=== PATIENT | male | born 1940 | race Caucasian/White ===

== ENCOUNTER 2022-01-14 08:33 | Outpatient (REF) | payer MEDICARE, SELFPAY ==
[2022-01-14 11:26] LABS: MANUAL DIFF FLAG NO
[2022-01-14 11:35] LABS: Basophils Absolute Auto 0.1 X10*3/uL (0.0-0.2); Basophils Percent Auto 0.8 % (0-2); Eosinophils Absolute Auto 0.1 X10*3/uL (0.0-0.4); Eosinophils Percent Auto 2.2 % (0-4); Hematocrit 41.8 % (42.0-52.0); Hemoglobin 13.9 g/dl (14.0-18.0); Imm Gran Abs Auto 0.01 X10*3/uL (0.00-0.03); Imm Gran Pct Auto 0.2 % (0.0-0.4); Lymphocytes Absolute Auto 1.4 X10*3/uL (1.2-4.9); Lymphocytes Percent Auto 21.5 % (20-40); Mean Corpuscular HGB Conc 33.3 g/dl (31.0-36.0); Mean Corpuscular Hemoglobin 31.7 pg (27.0-33.0); Mean Corpuscular Volume 95.2 fL (80.0-98.0); Mean Platelet Volume 11.1 fL (9.4-12.4); Monocytes Absolute Auto 0.5 X10*3/uL (0.1-1.2); Monocytes Percent Auto 7.9 % (2-11); Neutrophils Absolute Auto 4.3 x10*3/uL (2.0-8.3); Neutrophils Percent Auto 67.4 % (45-73); Platelet Count 188 X10*3/uL (160-400); Red Blood Count 4.39 X10*6/uL (4.60-5.80); Red Cell Distribution Width 13.4 % (11.0-16.0); White Blood Count 6.4 X10*3/uL (4.8-10.8)
[2022-01-14 12:11] LABS: Alanine Aminotransferase 13 U/L (0-40); Albumin Level 4.2 g/dL (3.5-5.0); Alkaline Phosphatase 81 U/L (39-117); Anion Gap 10 (12-20); Aspartate Amino Transferase 15 U/L (5-37); Bilirubin Total 0.8 mg/dL (0.0-1.0); Blood Urea Nitrogen 10 mg/dL (9-16); Calcium 9.3 mg/dL (8.4-10.2); Carbon Dioxide 27 mmol/L (22-29); Chloride 108 mmol/L (96-108); Cholesterol 172 mg/dL; Estimated Glomerular Filt Rate > 60; Glucose Fasting 99 mg/dL (60-99); HDL Cholesterol 44 mg/dL; LDL Cholesterol Calculated 111 mg/dl; Potassium 3.9 mmol/L (3.3-5.1); Sodium 141 mmol/L (135-145); Triglycerides 86 mg/dL
[2022-01-14 12:13] LABS: Prostate Specific Antigen Scr 0.73 ng/mL (<0.05-4.0)
== END 2022-01-14 08:34 | disposition home or self-care (01) ==
LOC: HO.HMGCLDS 08:33
PROVIDERS: Visit Provider Internal Medicine
DX: Z12.5 Encounter for screening for malignant neoplasm of prostate (principal); N40.0 Benign prostatic hyperplasia without lower urinary tract symptoms; J44.9 Chronic obstructive pulmonary disease, unspecified; G47.33 Obstructive sleep apnea (adult) (pediatric); R56.9 Unspecified convulsions; I87.8 Other specified disorders of veins
CPT/HCPCS: 36415; 80053; 80061; 84153; 85025

== ENCOUNTER 2023-02-07 11:18 | Outpatient (REF) | payer MEDICARE, SELFPAY ==
--- NOTE | ~2023-02-07 | XR_ITS ---
EXAMINATION: XR CALCANEUS, RIGHT CLINICAL INFORMATION: Pain COMPARISON: None available. TECHNIQUE: Lateral and axial views of the right calcaneus were obtained. FINDINGS: No acute fracture or dislocation. Mild degenerative changes of the foot with degenerative spurring of the dorsal midfoot and plantar calcaneal enthesopathy. No tibiotalar joint effusion. Soft tissue swelling in the plantar soft tissues of the heel. XR/XR calcaneus RT min 2V IMPRESSION: 1. Soft tissue swelling in the plantar soft tissues of the heel. 2. Mild degenerative changes of the foot with degenerative spurring of the dorsal midfoot and plantar calcaneal enthesopathy.
[2023-02-07 15:01] LABS: MANUAL DIFF FLAG NO
[2023-02-07 15:17] LABS: Basophils Percent Auto 0.6 % (0-2); Eosinophils Absolute Auto 0.1 X10*3/uL (0.0-0.4); Eosinophils Percent Auto 1.2 % (0-4); Hematocrit 41.8 % (42.0-52.0); Hemoglobin 13.7 g/dl (14.0-18.0); Imm Gran Abs Auto 0.03 X10*3/uL (0.00-0.03); Imm Gran Pct Auto 0.4 % (0.0-0.4); Lymphocytes Absolute Auto 1.4 X10*3/uL (1.2-4.9); Lymphocytes Percent Auto 20.2 % (20-40); Mean Corpuscular HGB Conc 32.8 g/dl (31.0-36.0); Mean Corpuscular Hemoglobin 31.7 pg (27.0-33.0); Mean Corpuscular Volume 96.8 fL (80.0-98.0); Monocytes Absolute Auto 0.6 X10*3/uL (0.1-1.2); Monocytes Percent Auto 8.1 % (2-11); Neutrophils Absolute Auto 4.7 x10*3/uL (2.0-8.3); Neutrophils Percent Auto 69.5 % (45-73); Platelet Count 182 X10*3/uL (160-400); Red Blood Count 4.32 X10*6/uL (4.60-5.80); Red Cell Distribution Width 13.4 % (11.0-16.0); White Blood Count 6.8 X10*3/uL (4.8-10.8)
[2023-02-07 15:51] LABS: Alanine Aminotransferase 12 U/L (0-40); Albumin Level 4.3 g/dL (3.5-5.0); Alkaline Phosphatase 76 U/L (39-117); Anion Gap 11 (12-20); Aspartate Amino Transferase 17 U/L (5-37); Bilirubin Total 0.8 mg/dL (0.0-1.0); Blood Urea Nitrogen 12 mg/dL (9-16); Calcium 9.6 mg/dL (8.4-10.2); Carbon Dioxide 27 mmol/L (22-29); Chloride 108 mmol/L (96-108); Cholesterol 158 mg/dL; Estimated Glomerular Filt Rate > 60; Glucose Random 77 mg/dL (60-115); Potassium 3.9 mmol/L (3.3-5.1); Sodium 142 mmol/L (135-145); Total Protein 7.3 g/dL (6.5-8.0)
== END 2023-02-07 11:19 | disposition home or self-care (01) ==
LOC: HO.HMGCX 11:18
PROVIDERS: PCP Internal Medicine; Visit Provider Internal Medicine
DX: M79.671 Pain in right foot (principal); N40.0 Benign prostatic hyperplasia without lower urinary tract symptoms; J44.9 Chronic obstructive pulmonary disease, unspecified; E78.00 Pure hypercholesterolemia, unspecified
CPT/HCPCS: 36415; 73650; 80053; 82465; 85025

== ENCOUNTER 2023-06-13 09:42 | Outpatient (REF) | payer MEDICARE, SELFPAY ==
[2023-06-13 10:51] LABS: MANUAL DIFF FLAG NO
[2023-06-13 10:52] LABS: Basophils Absolute Auto 0.1 X10*3/uL (0.0-0.2); Basophils Percent Auto 1.1 % (0-2); Eosinophils Absolute Auto 0.1 X10*3/uL (0.0-0.4); Eosinophils Percent Auto 1.3 % (0-4); Hematocrit 43.3 % (42.0-52.0); Hemoglobin 14.3 g/dl (14.0-18.0); Imm Gran Abs Auto 0.02 X10*3/uL (0.00-0.03); Imm Gran Pct Auto 0.4 % (0.0-0.4); Lymphocytes Absolute Auto 1.4 X10*3/uL (1.2-4.9); Lymphocytes Percent Auto 25.3 % (20-40); Mean Corpuscular Hemoglobin 31.6 pg (27.0-33.0); Mean Corpuscular Volume 95.8 fL (80.0-98.0); Mean Platelet Volume 10.8 fL (9.4-12.4); Monocytes Absolute Auto 0.5 X10*3/uL (0.1-1.2); Monocytes Percent Auto 8.9 % (2-11); Neutrophils Absolute Auto 3.4 x10*3/uL (2.0-8.3); Platelet Count 174 X10*3/uL (160-400); Red Blood Count 4.52 X10*6/uL (4.60-5.80); Red Cell Distribution Width 13.6 % (11.0-16.0); White Blood Count 5.4 X10*3/uL (4.8-10.8)
[2023-06-13 11:27] LABS: Anion Gap 11 (12-20); Blood Urea Nitrogen 14 mg/dL (9-16); Calcium 9.7 mg/dL (8.4-10.2); Carbon Dioxide 29 mmol/L (22-29); Chloride 109 mmol/L (96-108); Estimated Glomerular Filt Rate > 60; Glucose Random 100 mg/dL (60-115); Iron 133 mcg/dL (45-160); Percent Iron Saturation 57 % (15-50); Potassium 4.3 mmol/L (3.3-5.1); Sodium 145 mmol/L (135-145); Total Iron Binding Capacity 232 mcg/dL (228-428); Unsaturated Iron Binding 99 ug/dL
== END 2023-06-13 09:43 | disposition home or self-care (01) ==
LOC: HO.10HDL 09:42
PROVIDERS: Visit Provider Internal Medicine
DX: D64.9 Anemia, unspecified (principal); J44.9 Chronic obstructive pulmonary disease, unspecified
CPT/HCPCS: 36415; 80048; 83540; 85025

== ENCOUNTER 2023-08-27 17:05 | Emergency (ER) | payer MEDICARE, SELFPAY ==
[2023-08-27 17:19] VITALS: BP 167/92; PULSE 82; RESP 16; TEMP 37.1; O2SAT 96; BMI 28.4
--- NOTE | 2023-08-27 17:37 | ED.FALL ---
HPI - Fall General Chief Complaint: Fall Stated Complaint: FALL W/HEAD LAC,SUPERFICIAL CUT Time Seen by Provider: 08/27/23 17:20 Source: patient Mode of arrival: EMS History of Present Illness HPI Narrative: 82-year-old male who arrives via EMS after he was heading out to snow blow his yd reached for an item and then fell backwards striking the back of his head against a cast iron heater but denies any loss of consciousness, bleeding is controlled denies any visual disturbance/dizziness/headache and does not use any blood thinners. Related Data Home Medications Medication Instructions Recorded Confirmed lamotrigine 100 mg tablet 150 mg PO BID 01/05/22 tamsulosin 0.4 mg capsule 0.4 mg PO DAILY 01/05/22 tiotropium 2.5 mcg-olodaterol 2.5 2 puff PO DAILY 01/05/22 mcg/actuation mist for inhalation (Stiolto Respimat) Allergies Allergy/AdvReac Type Severity Reaction Status Date / Time No Known Allergies Allergy Unverified 01/14/22 08:10 Review of Systems Review of Systems: Pertinent positives and negatives as stated in [facility] Past Medical History Source: nursing notes reviewed Onset Date is defined in the Problem List Problems that require an onset date and time if occurred within 24 hrs of arrival to the ED Aortic Dissection and Rupture; Neurologic impairment; Cardiopulmonary Arrest; Endotracheal Intubation; Insertion or Replacement of Mechanical Circulatory Assist Device Social History Social History Advance Directives: Yes Advance Directives on File: No Physical Exam Vital Signs: Vital Signs: Last Vital Signs Temp 98.7 F 08/27/23 17:19 Pulse 82 08/27/23 17:19 Resp 16 08/27/23 17:19 BP 167/92 H 08/27/23 17:19 Pulse Ox 96 08/27/23 17:19 O2 Del Method Room Air 08/27/23 17:19 BMI result Body Mass Index 28.4 VITAL SIGNS: Reviewed. GENERAL: Well developed, well nourished, in no acute distress. HEAD: Normocephalic/contusion with abrasion at mid occiput EYES: PERRLA, EOMI intact without pain, no nystagmus EARS: Ext canals without abnormality NOSE: Nares patent bilateral OROPHARYNX: no oral lesions noted, posterior pharynx clear NECK: Supple, no adenopathy LUNGS: Normal breath sounds. No adventitious sounds or accessory muscle use. SpO2<96> CARDIOVASCULAR: Regular rate and rhythm without noted murmurs, no JVD or lower extremity edema. ABDOMEN: Soft, non-tender, non-distended with bowel sounds. MUSCULOSKELETAL: No tenderness, deformities, or effusions noted on gross inspection. EXTREMITIES: No cyanosis, clubbing or edema. SKIN: Inspection of the skin reveals no rashes NEUROLOGIC: Alert and oriented x 4. Strength and sensation to light touch were grossly intact x 4. Medical Decision Making Medical Decision Making MDM Narrative: 82-year-old male with history and clinical presentation of mechanical fall with contusion/abrasion of the scalp, no neurologic findings and not on blood thinners. Will evaluate with CT head and C-spine given patient's age and item that he fell backwards onto despite no loss of consciousness. I reviewed the CT scan which is negative for intracranial hemorrhage or mass effect. Cervical spine CT scan describes a slight C5 anterior wedging, on clinical exam there was no correlation with pain or discomfort. There is no numbness/tingling/weakness into either upper extremity. Differential Diagnosis Differential Diagnoses: The differential diagnosis associated with the presentation includes Please see the discussion above Admission/Observation Consideration of admission/observation: Escalation of care including admission/observation considered Please see the discussion above Radiology Impression Discussion of test interpretation with radiology: I have reviewed the radiologist's reading. Radiologist Impression: Please see the discussion above External Record Review External record reviewed: Outpatient record, Prior outpatient labs and Prior outpatient radiology Chronic Conditions Patient?s care impacted by: Other COPD Discharge Plan Discharge Clinical Impression: Fall, Contusion of scalp Patient Disposition: Home, Self-Care Instructions: Scalp Contusion in Adults (ED), Fall Prevention (ED) Additional Instructions: 1. Resume all home medications as prescribed. 2. Recommend Tylenol/ibuprofen as needed for headaches. Return to the ER for any worsening symptoms. Prescriptions: No Action tamsulosin 0.4 mg capsule 0.4 mg PO DAILY lamotrigine 100 mg tablet 150 mg PO BID Stiolto Respimat 2.5-2.5 mcg/actuation mist 2 puff PO DAILY Referrals: Kwabena Acuña MD [Primary Care Provider] -
== END 2023-08-27 19:45 | disposition home or self-care (01) ==
PROVIDERS: Emergency Provider Student in an Organized Health Care Education/Training Program; PCP Internal Medicine
DX: S00.03XA Contusion of scalp, initial encounter (principal); S09.90XA Unspecified injury of head, initial encounter; W00.0XXA Fall on same level due to ice and snow, initial encounter; Y93.9 Activity, unspecified; Y92.9 Unspecified place or not applicable; Y99.9 Unspecified external cause status
CPT/HCPCS: 70450; 72125; 99282; 99284

== ENCOUNTER 2024-01-01 07:53 | Outpatient (REF) | payer MEDICARE, SELFPAY ==
--- NOTE | ~2024-01-01 | XR_ITS ---
EXAMINATION: XR BILATERAL KNEES CLINICAL INFORMATION: Pain in bilateral knees. COMPARISON: None available. TECHNIQUE: 3 views of each knee. FINDINGS: LEFT KNEE: Small joint effusion. Bones are diffusely demineralized. Chondrocalcinosis in the medial lateral compartments. Mild to moderate narrowing of the medial compartment. Tiny tricompartmental osteophytes. RIGHT KNEE: The bones are diffusely demineralized. Faint chondrocalcinosis in the medial and lateral compartments. Small tricompartmental osteophytes. Vascular calcifications. Moderate narrowing of the medial compartment. Small joint effusion. XR/XR knee LT 3V IMPRESSION: 1. Chondrocalcinosis in the medial and lateral compartments bilaterally. 2. Moderate degenerative changes bilateral knees, right greater than left.
--- NOTE | ~2024-01-01 | XR_ITS ---
EXAMINATION: XR BILATERAL KNEES CLINICAL INFORMATION: Pain in bilateral knees. COMPARISON: None available. TECHNIQUE: 3 views of each knee. FINDINGS: LEFT KNEE: Small joint effusion. Bones are diffusely demineralized. Chondrocalcinosis in the medial lateral compartments. Mild to moderate narrowing of the medial compartment. Tiny tricompartmental osteophytes. RIGHT KNEE: The bones are diffusely demineralized. Faint chondrocalcinosis in the medial and lateral compartments. Small tricompartmental osteophytes. Vascular calcifications. Moderate narrowing of the medial compartment. Small joint effusion. XR/XR knee RT 3V IMPRESSION: 1. Chondrocalcinosis in the medial and lateral compartments bilaterally. 2. Moderate degenerative changes bilateral knees, right greater than left.
== END 2024-01-01 07:54 | disposition home or self-care (01) ==
LOC: HO.HOSX 07:53
PROVIDERS: Visit Provider Orthopaedic Surgery
DX: M17.0 Bilateral primary osteoarthritis of knee (principal)
CPT/HCPCS: 73562; 99202

== ENCOUNTER 2024-01-01 10:50 | Outpatient (AMB) | payer MEDICARE, SELFPAY ==
[2024-01-01 10:54] VITALS: BMI 28.4
--- NOTE | 2024-01-01 10:54 | MHC.OFFVIS ---
Vital Signs 01/01/24 10:54 Height 6 ft 1 in Weight 215 lb BMI 28.4 Intake Visit Reasons: [employer]-Both knee pain Intake Note: Cirilo is a 83 year old male who presents as a new patient with bilateral knee pain. Patient reports his pain has been going on for about a year and is a 5 on the 1-10 pain scale. His Left is worse. He states he is using tylenol and lidocaine creams for pain with some relief. He denies injury, injections, and surgery. He denies any locking or giving way. Allergies niacin Allergy (Intermediate, Verified 01/01/24 11:13) Rash Medication List - Last Reconciled 01/01/24 by Mehul Easton MD lamotrigine 150 mg PO BID tamsulosin 0.4 mg PO DAILY tiotropium-olodaterol 2.5-2.5 mcg/actuation (Stiolto Respimat) 2 puffs PO DAILY PFSH Social History (Updated 01/01/24 @ 11:14 by sUha Sims CMA) Patient Tobacco Use Status: Former Tobacco user Current occupational status: retired Current occupation: Right hand dominant Physical Exam Vital Signs: BMI result Body Mass Index 28.4 Const Other: Well-nourished well-developed very friendly male awake alert and oriented x3 in no acute distress Extrem Other: Bilateral lower extremity examination shows good capillary refill, no skin lesions noted, normal sensation light touch Bilateral knee examination shows minimal effusions, mild crepitus with range of motion, mild discomfort with range of motion, no instability Results Reviewed Results Reviewed: X-rays of the patient's bilateral knees taken today show mild to moderate diffuse joint space narrowing, no acute bony abnormalities Assessment & Plan Assessment & Plan (1) Right knee pain: Code(s): M25.561 - Pain in right knee Category: Medical (2) Left knee pain: Code(s): M25.562 - Pain in left knee Category: Medical Plan Mr. Grider presents with intermittent bilateral knee discomfort due to degenerative joint disease. I had a lengthy discussion with the patient regarding the treatment options. At this point the patient's symptoms are tolerable to him. He wishes to hold off on an injection. Will continue with his activity modifications. He will follow up with me on an as-needed basis should his symptoms worsen in any way. Feel free to call me at any time should questions regarding his orthopedic management arise. Thank you very much for asking me to see this very friendly gentleman. I spent 20 minutes in reviewing the patient's records and imaging studies, seeing the patient and documenting in the medical record. Orders: Orders XR knee RT 3V Today M25.561 - Pain in right knee XR knee LT 3V Today M25.562 - Pain in left knee Coding Level of Care Code New Pt Level 2 (55269) Diagnoses Right knee pain M25.561 Left knee pain M25.562
== END 2024-01-01 11:33 | disposition home or self-care (01) ==
PROVIDERS: PCP Internal Medicine; Visit Provider Orthopaedic Surgery
DX: M25.561 Pain in right knee (principal); M25.562 Pain in left knee
CPT/HCPCS: 99203

== ENCOUNTER 2024-01-25 10:12 | Outpatient (AMB) | payer MEDICARE, SELFPAY ==
--- NOTE | 2024-01-25 10:14 | A.OFFVIS_ITS ---
Intake Visit Reasons: Newprob-Lower back pain Intake Note: This is an 83 year old male who presents for a new problem appointment for lower back pain. He had x rays updated in the office today. He reports he had a fall 2 months ago but does not think that contributes to his pain. He denies numbness and tingling however he is pointing to his hip area and stating he has pain there. He uses a cane to ambulate. He takes Tylenol daily to help with the pain. Allergies niacin Allergy (Intermediate, Verified 01/25/24 10:15) Rash Medication List - Last Reconciled 01/25/24 by Elsa Baxter RN lamotrigine 150 mg PO BID tamsulosin 0.4 mg PO DAILY tiotropium-olodaterol 2.5-2.5 mcg/actuation (Stiolto Respimat) 2 puffs PO DAILY HPI Comments Details: He says it is more left hip pain. Chronic for years. Sees a chiropractor for past several years. 2 months ago, he noticed worsening of left hip pain. Chiro tried to manipulate, xray of left hip done and told to see orthopedics. Left hip lateral, goes to groin, goes to buttocks. Denies back pain. Does not radiate to leg. Denies numbness. Difficulty going up stairs and walk. Uses cane. Does play golf, he rolled downwards last September. No new change in bladder/bowel. Here with . [facility] Medical History (Updated 01/25/24 @ 13:31 by Becky Perez MD) Left hip pain Social History (Updated 01/01/24 @ 11:14 by Usha Sims CMA) Patient Tobacco Use Status: Former Tobacco user Current occupational status: retired Current occupation: Right hand dominant Review of Systems Const All systems reviewed & are unremarkable except as noted in HPI and below Physical Exam Constitutional: Patient appears to be in no acute distress, well nourished and well developed. Patient was appropriately conversant and oriented. Good historian. MSK: No specific abnormalities found on inspection of the spine and all extremities. No pain with palpation over the lumbar area. Mild tenderness on left SI joint. Most of his tenderness appears to be left gluteus. Mild tenderness on left GT. Lumbar ROM was full. He walks with both knees flexed. He has difficulty and weakness on left hip flexion. No footdrop. Neurological: Weakness as above. Suárez?s negative bilaterally. Babinski was down going bilaterally. Clonus was negative. Gait as above. Uses cane. Results Reviewed Results Reviewed: I independently reviewed the results of the following: Lumbar x-ray done in the office prior to visit showed spondylosis, endplate spurs anteriorly, decreased disc space L3-4 L4-5 and L5-S1. I reviewed records from the following: Dr. Easton saw him for knee DJD He had a fall and went to the ER 08/27/2023 Assessment & Plan Assessment & Plan (1) Left hip pain: Code(s): M25.552 - Pain in left hip Category: Medical (2) Degenerative joint disease of left hip: Code(s): M16.12 - Unilateral primary osteoarthritis, left hip Category: Medical Qualifiers: Osteoarthritis type: primary Qualified Code(s): M16.12 - Unilateral primary osteoarthritis, left hip (3) Sacroiliac joint dysfunction of left side: Code(s): M53.3 - Sacrococcygeal disorders, not elsewhere classified Category: Medical (4) Muscle strain of left gluteal region: Code(s): S76.012A - Strain of muscle, fascia and tendon of left hip, initial encounter Category: Medical Qualifiers: Encounter type: initial encounter Qualified Code(s): S76.012A - Strain of muscle, fascia and tendon of left hip, initial encounter Plan Suspect that this symptoms are primarily from left hip osteoarthritis. We will send him back to x-rays for confirmation. Secondarily, he is also hurting on his left SI joint and gluteus muscles. He is willing and eager to try physical therapy. We could try topical pain medication for now such as diclofenac gel. Instructions given. As of the time of this writing, I have you would hip x-ray films, and no acute fracture was seen. Saw decreased joint space. Await final reading. Assessment and plan discussed with patient, and patient was agreeable. All questions were answered thoroughly. Follow-up 4-6 weeks after PT. Becky Perez MD, JENNIFER Board Certified, [place] Board of Physical Medicine and Rehabilitation (ABPMR) Board Certified, [place] Board of Electrodiagnostic Medicine (ABEM) Orders: Orders XR lumbar spine 2-3V Today M54.9 - Dorsalgia, unspecified XR hip LT min 2V Today M16.12 - Unilateral primary osteoarthritis, left hip, M25.552 - Pain in left hip, M53.3 - Sacrococcygeal disorders, not elsewhere classified, S76.012A - Strain of muscle, fascia and tendon of left hip, initial encounter PT Evaluation and Treatment Today M16.12 - Unilateral primary osteoarthritis, left hip, M25.552 - Pain in left hip, M53.3 - Sacrococcygeal disorders, not elsewhere classified, S76.012A - Strain of muscle, fascia and tendon of left hip, initial encounter Medications: New diclofenac sodium 1% apply to left foot 4 grams topical QID 100 grams 0RF Coding Level of Care Code New Pt Level 4 (72686) Diagnoses Left hip pain M25.552 Primary osteoarthritis of left hip M16.12 Osteoarthritis type: primary Sacroiliac joint dysfunction of left side M53.3 Muscle strain of left gluteal region, initial encounter S76.012A Encounter type: initial encounter
== END 2024-01-25 11:37 | disposition home or self-care (01) ==
PROVIDERS: PCP Internal Medicine; Visit Provider Physical Medicine & Rehabilitation
DX: M25.552 Pain in left hip (principal); M16.12 Unilateral primary osteoarthritis, left hip; M53.3 Sacrococcygeal disorders, not elsewhere classified; S76.012A Strain of muscle, fascia and tendon of left hip, initial encounter
CPT/HCPCS: 99203

== ENCOUNTER 2024-01-25 10:48 | Outpatient (REF) | payer MEDICARE, SELFPAY ==
--- NOTE | ~2024-01-25 | XR_ITS ---
EXAMINATION: XR LUMBAR SPINE XR HIP, LEFT CLINICAL INDICATION: Back pain, patient unable to stand per technologist. COMPARISON: Sacroiliac joints 11/13/2023. TECHNIQUE: 3 views of the lumbar spine. 2 views of the left hip. FINDINGS: LUMBAR SPINE: The bones are diffusely demineralized. Degenerative changes of the bilateral sacroiliac joints. 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 Multilevel lumbar spondylosis with multilevel loss of disc space height most notable at L5-S1. Grade 1 anterolisthesis of L5 on S1. Minimal grade 1 retrolisthesis of L1 on L2, L2 on L3, and L3 on L4. LEFT HIP: The bones are diffusely demineralized. Surgical sutures overlie the sacrum. Moderate degenerative changes with joint space narrowing and hypertrophic change involving left hip. Amorphous calcifications in the soft tissues adjacent to the left hip and left greater trochanter. XR/XR hip LT min 2V IMPRESSION: 1. Multilevel lumbar spondylosis most notable at L5-S1. 2. 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 3. Moderate degenerative changes in the left hip.
--- NOTE | ~2024-01-25 | XR_ITS ---
EXAMINATION: XR LUMBAR SPINE XR HIP, LEFT CLINICAL INDICATION: Back pain, patient unable to stand per technologist. COMPARISON: Sacroiliac joints 11/13/2023. TECHNIQUE: 3 views of the lumbar spine. 2 views of the left hip. FINDINGS: LUMBAR SPINE: The bones are diffusely demineralized. Degenerative changes of the bilateral sacroiliac joints. 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 Multilevel lumbar spondylosis with multilevel loss of disc space height most notable at L5-S1. Grade 1 anterolisthesis of L5 on S1. Minimal grade 1 retrolisthesis of L1 on L2, L2 on L3, and L3 on L4. LEFT HIP: The bones are diffusely demineralized. Surgical sutures overlie the sacrum. Moderate degenerative changes with joint space narrowing and hypertrophic change involving left hip. Amorphous calcifications in the soft tissues adjacent to the left hip and left greater trochanter. XR/XR lumbar spine 2-3V IMPRESSION: 1. Multilevel lumbar spondylosis most notable at L5-S1. 2. 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 3. Moderate degenerative changes in the left hip.
== END 2024-01-25 10:49 | disposition home or self-care (01) ==
LOC: HO.HOSX 10:48
PROVIDERS: Visit Provider Physical Medicine & Rehabilitation
DX: M16.12 Unilateral primary osteoarthritis, left hip (principal); M54.9 Dorsalgia, unspecified; M53.3 Sacrococcygeal disorders, not elsewhere classified; S76.012A Strain of muscle, fascia and tendon of left hip, initial encounter
CPT/HCPCS: 72100; 73502; 99202

== ENCOUNTER 2024-02-28 08:58 | Outpatient (AMB) | payer MEDICARE, SELFPAY ==
[2024-02-28 08:59] VITALS: BMI 28.4
--- NOTE | 2024-02-28 08:59 | A.OFFVIS_ITS ---
Vital Signs 02/28/24 08:59 Height 6 ft 1 in Weight 215 lb BMI 28.4 Intake Visit Reasons: OV-Lower back pain-follow up Intake Note: Cirilo is a 83 year old male who presents to the office today for a follow up Strain of L Hip, Primary OA L Hip. Pt has been going to PT which is going well, he explains that it took them almost a month for them to call him and schedule. He has only done about 3 sessions so far. He has been utilizing the Diclofenac gel which has been helping his significantly & he is requesting a refill He paid for a full year of golf and is unable to participate due to his pain , so he is requesting a letter to be reimbursed for this. He is also requesting a handicap placard. Allergies niacin Allergy (Intermediate, Verified 02/28/24 09:03) Rash Medication List - Last Reconciled 02/28/24 by Becky Perez MD diclofenac sodium 1% 4 grams topical QID lamotrigine 150 mg PO BID tamsulosin 0.4 mg PO DAILY tiotropium-olodaterol 2.5-2.5 mcg/actuation (Stiolto Respimat) 2 puffs PO DAILY HPI Comments Details: Seen initially for what he says is more left hip pain. Chronic for years. Sees a chiropractor for past several years. 2 months ago, he noticed worsening of left hip pain. Chiro tried to manipulate, xray of left hip done and told to see orthopedics. Left hip lateral, goes to groin, goes to buttocks. Denies back pain. Does not radiate to leg. Denies numbness. Difficulty going up stairs and walk. Uses cane. Does play golf, he rolled downwards last September. No new change in bladder/bowel. On exam, he had left hip and SI joint pain. With notable pain referring to left groin. Xrays confirmed moderate OA on left hip, degenerative changes on SI joints, lumbar facet arthritis and spondylosis. Says today that the diclofenac gel is helping a lot, has decreased the severity of the left groin pain. He is doing therapy and exercises, but unable to play golf this season. Still unable to walk for prolonged periods, that is why he is requesting for handicap placard. Starting to complain of knee pain again, as previously seen Dr. Philippe for that. [facility] Medical History (Updated 02/28/24 @ 09:24 by Becky Perez MD) Degenerative joint disease of left hip Lumbar spondylosis Left hip pain Social History Patient Tobacco Use Status: Former Tobacco user Current occupational status: retired Current occupation: Right hand dominant Review of Systems Const All systems reviewed & are unremarkable except as noted in HPI and below Physical Exam Vital Signs: BMI result Body Mass Index 28.4 Constitutional: Patient appears to be in no acute distress, well nourished and well developed. Patient was appropriately conversant and oriented. Good historian. MSK: Difficulty getting up from seated position. He walks with both knees flexed. No footdrop. Neurological: Babinski was down going bilaterally. Clonus was negative. Gait as above. Uses cane. Results Reviewed Results Reviewed: Ordering Physician: Becky Hernandez Date of Service: 01/25/24 Procedure(s): XR hip LT min 2V Accession Number(s): [id number] cc: Becky Hernandez~ EXAMINATION: XR LUMBAR SPINE XR HIP, LEFT CLINICAL INDICATION: Back pain, patient unable to stand per technologist. COMPARISON: Sacroiliac joints 11/13/2023. TECHNIQUE: 3 views of the lumbar spine. 2 views of the left hip. FINDINGS: LUMBAR SPINE: The bones are diffusely demineralized. Degenerative changes of the bilateral sacroiliac joints. 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 Multilevel lumbar spondylosis with multilevel loss of disc space height most notable at L5-S1. Grade 1 anterolisthesis of L5 on S1. Minimal grade 1 retrolisthesis of L1 on L2, L2 on L3, and L3 on L4. LEFT HIP: The bones are diffusely demineralized. Surgical sutures overlie the sacrum. Moderate degenerative changes with joint space narrowing and hypertrophic change involving left hip. Amorphous calcifications in the soft tissues adjacent to the left hip and left greater trochanter. XR/XR hip LT min 2V IMPRESSION: 1. Multilevel lumbar spondylosis most notable at L5-S1. 2. 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 3. Moderate degenerative changes in the left hip. Assessment & Plan Assessment & Plan (1) Left hip pain: Code(s): M25.552 - Pain in left hip Category: Medical (2) Degenerative joint disease of left hip: Code(s): M16.12 - Unilateral primary osteoarthritis, left hip Category: Medical Qualifiers: Osteoarthritis type: primary Qualified Code(s): M16.12 - Unilateral primary osteoarthritis, left hip (3) Sacroiliac joint dysfunction of left side: Code(s): M53.3 - Sacrococcygeal disorders, not elsewhere classified Category: Medical (4) Lumbar spondylosis: Code(s): M47.816 - Spondylosis without myelopathy or radiculopathy, lumbar region Category: Medical Plan Left groin pain improved since last time I saw him. Although overall he has d egenerative changes/osteoarthritis on his knees, hips, SI joints, lumbar spine. He is managing tolerably and remains functional. I am okay with writing the letter so that he can get a refund from his golf payments. I signed the request for handicap placard. Sent refills for diclofenac gel. Discussed side effects and precautions. Encouraged to continue exercises and therapy. He understands I can not be sedentary. His goal is to go back to golf next spring. Assessment and plan discussed with patient, and patient was agreeable. All questions were answered thoroughly. Follow up 6 months. Becky Perez MD, JENNIFER Board Certified, [place] [employer] (ABPMR) Board Certified, [place] [employer] (ABEM) Medications: Changed From diclofenac sodium 1% apply to left foot 4 grams topical QID 100 grams 0RF To diclofenac sodium 1% apply to painful area up to QID 4 grams topical QID 100 grams 5RF Refilled diclofenac sodium 1% apply to painful area up to QID 4 grams topical QID 100 grams 5RF Coding Level of Care Code Est Pt Level 4 (53799) Diagnoses Left hip pain M25.552 Primary osteoarthritis of left hip M16.12 Osteoarthritis type: primary Sacroiliac joint dysfunction of left side M53.3 Lumbar spondylosis M47.816
== END 2024-02-28 09:19 | disposition home or self-care (01) ==
PROVIDERS: PCP Internal Medicine; Visit Provider Physical Medicine & Rehabilitation
DX: M25.552 Pain in left hip (principal); M16.12 Unilateral primary osteoarthritis, left hip; M53.3 Sacrococcygeal disorders, not elsewhere classified; M47.816 Spondylosis without myelopathy or radiculopathy, lumbar region
CPT/HCPCS: 99213

== ENCOUNTER → 2024-02-28 08:58 | Outpatient (BNVA) | payer MEDICARE, SELFPAY | PROVIDERS: PCP Internal Medicine; Visit Provider Physical Medicine & Rehabilitation | DX: M16.12 Unilateral primary osteoarthritis, left hip (principal); M53.3 Sacrococcygeal disorders, not elsewhere classified; M47.816 Spondylosis without myelopathy or radiculopathy, lumbar region | CPT/HCPCS: 99212 ==

== ENCOUNTER 2024-04-02 09:00 | Outpatient (RCR) | payer MEDICARE, SELFPAY ==
--- NOTE | 2024-02-15 09:25 | MHC.PT.EP ---
[facility] [place] Office [place] [facility] [place] Office [address] Aram Avila [address] [phone] F: [phone] F: [phone] F: [phone] F: [phone] Physical Therapy Plan of Care Date of Evaluation: 02/15/24 Date of Surgery: n/a Diagnosis: strain of L hip, primary OA L hip Assessment: Patient is a 83 year old male presenting to PT with complaints of pain in his L hip. Pt reports onset of pain began November 2023 due to insidious onset. He presents today with impairments in pain, ROM, hip strength, gait mechanics. Pt's current occupation is retired, with baseline physical activities including ambulating, stair negotiation, ADLs. Pt expresses correction goal of reducing pain, and is motivated to work towards this in PT. Clinical presentation today is most consistent with signs and sx associated with L hip pain and pt will benefit from skilled PT 2 week x 4 weeks to address the following problems and impairments noted upon evaluation: pain, ROM, hip strength, gait mechanics. These problems limit the patient with the following functional activities: ambulating, stair negotiation, ADLs. The prescribed treatment plan of care is medically necessary. Co-morbidities of epilepsy, COPD were identified and taken into considerations of plan of care. Pt was educated on HEP, role of PT, prognosis, POC. Frequency and Duration: The patient will be seen 2 x week x 4 weeks Short Term Goals: Pt will demonstrate improved hip MMT strength by 1/3 grade in 2 weeks for improved lumbopelvic stability. Pt will demonstrate ROM in available range with min to no pain in 2 weeks. Pt will demonstrate ability to stand with NBOS x 30 sec with min to no sway in 2 weeks for improved balance. [employer] Vice President Goals: Pt will demonstrate improved LEFI score by 9 points in 4 weeks for improved functional mobility. Pt will demonstrate ability to ambulate with min to no pain in 4 weeks for improved access to his home. Treatment Plan: Modalities to reduce pain, spasms and effusion. Manual therapy to restore motion and function. Therapeutic exercise to improve strength and flexibility. Neuromuscular re-education for posture and balance. Therapeutic activities to return to functional activities of daily living. Electronically signed by: Shawanda Kaur, PT, DPT, ATC Please sign and return to therapist. Thank you for your referral.
--- NOTE | 2024-04-02 10:03 | MHC.PT.DC ---
[facility] [place] Office [place] Office [place] Office [address] [phone] F: [phone] F: [phone] F: [phone] F: [phone] Physical Therapy Discharge Report Diagnosis: strain of L hip, primary OA L hip Date of Surgery: n/a Date of Evaluation: 02/15/24 Date of Discharge: 04/02/24 Treatments to Date: 9 Cancellations to Date: 0 No Shows to Date: 0 Discharge Status: Improved Function Independent with HEP Discharge Summary: 04/02/2024: Pt has made some objective progress since start of care in PT. He continues to be a fall risk and demonstrate poor gait mechanics. It is likely that this is his baseline and probably will not improve. He feels he has gotten stronger and has less pain since start of care. At this time max benefits of PT have been provided and skilled PT is no longer indicated. Pt to be d/c to HEP which I encouraged continuing with to maintain progress. He is in agreement with d/c today. Electronically signed by: Shawanda Kaur, PT, DPT, ATC Please sign and return to therapist. Thank you for your referral.
== END 2024-04-02 10:03 | disposition home or self-care (01) ==
LOC: HO.PTCHIC 09:00
PROVIDERS: PCP Internal Medicine; Visit Provider Physical Medicine & Rehabilitation
DX: M16.12 Unilateral primary osteoarthritis, left hip (principal); M53.3 Sacrococcygeal disorders, not elsewhere classified; S76.012D Strain of muscle, fascia and tendon of left hip, subsequent encounter
CPT/HCPCS: 97110; 97161

== ENCOUNTER 2024-04-25 12:23 | Outpatient (REF) | payer MEDICARE, SELFPAY ==
[2024-04-25 13:09] LABS: MANUAL DIFF FLAG NO
[2024-04-25 13:14] LABS: Basophils Absolute Auto 0.1 X10*3/uL (0.0-0.2); Eosinophils Absolute Auto 0.1 X10*3/uL (0.0-0.4); Eosinophils Percent Auto 1.9 % (0-4); Hemoglobin 14.3 g/dl (14.0-18.0); Imm Gran Abs Auto 0.02 X10*3/uL (0.00-0.03); Imm Gran Pct Auto 0.3 % (0.0-0.4); Lymphocytes Absolute Auto 1.4 X10*3/uL (1.2-4.9); Mean Platelet Volume 10.2 fL (9.4-12.4); Monocytes Absolute Auto 0.5 X10*3/uL (0.1-1.2); Monocytes Percent Auto 7.1 % (2-11); Neutrophils Absolute Auto 4.9 x10*3/uL (2.0-8.3); Neutrophils Percent Auto 69.7 % (45-73); Platelet Count 170 X10*3/uL (160-400); Red Blood Count 4.47 X10*6/uL (4.60-5.80); Red Cell Distribution Width 13.2 % (11.0-16.0)
[2024-04-25 13:38] LABS: Alanine Aminotransferase 13 U/L (0-40); Albumin Level 4.4 g/dL (3.5-5.0); Alkaline Phosphatase 75 U/L (39-117); Anion Gap 12 (12-20); Aspartate Amino Transferase 14 U/L (5-37); Bilirubin Total 0.6 mg/dL (0.0-1.0); Blood Urea Nitrogen 14 mg/dL (9-16); Calcium 9.7 mg/dL (8.4-10.2); Carbon Dioxide 28 mmol/L (22-29); Chloride 106 mmol/L (96-108); Cholesterol 164 mg/dL (<200); Estimated Glomerular Filt Rate > 60; Glucose Random 95 mg/dL (60-115); Potassium 4.3 mmol/L (3.3-5.1); Sodium 142 mmol/L (135-145); Total Protein 7.2 g/dL (6.5-8.0)
[2024-04-25 13:50] LABS: Prostate Specific Antigen Scr 0.98 ng/mL (<0.05-4.0)
== END 2024-04-25 12:24 | disposition home or self-care (01) ==
LOC: HO.10HDL 12:23
PROVIDERS: Visit Provider Internal Medicine
DX: Z12.5 Encounter for screening for malignant neoplasm of prostate (principal); Z13.6 Encounter for screening for cardiovascular disorders; M19.90 Unspecified osteoarthritis, unspecified site; J44.9 Chronic obstructive pulmonary disease, unspecified; N40.0 Benign prostatic hyperplasia without lower urinary tract symptoms
CPT/HCPCS: 36415; 80053; 82465; 84153; 85025

== ENCOUNTER 2024-07-30 08:20 | Outpatient (REF) | payer MEDICARE, SELFPAY ==
[2024-07-30 10:18] LABS: MANUAL DIFF FLAG NO
[2024-07-30 10:27] LABS: Basophils Percent Auto 0.8 % (0-2); Eosinophils Absolute Auto 0.1 X10*3/uL (0.0-0.4); Eosinophils Percent Auto 2.3 % (0-4); Hemoglobin 13.9 g/dl (14.0-18.0); Imm Gran Abs Auto 0.02 X10*3/uL (0.00-0.03); Imm Gran Pct Auto 0.4 % (0.0-0.4); Lymphocytes Absolute Auto 1.4 X10*3/uL (1.2-4.9); Lymphocytes Percent Auto 26.6 % (20-40); Mean Corpuscular HGB Conc 33.1 g/dl (31.0-36.0); Mean Corpuscular Hemoglobin 31.2 pg (27.0-33.0); Mean Corpuscular Volume 94.2 fL (80.0-98.0); Mean Platelet Volume 10.8 fL (9.4-12.4); Monocytes Absolute Auto 0.4 X10*3/uL (0.1-1.2); Monocytes Percent Auto 7.3 % (2-11); Neutrophils Absolute Auto 3.2 x10*3/uL (2.0-8.3); Neutrophils Percent Auto 62.6 % (45-73); Platelet Count 178 X10*3/uL (160-400); Red Blood Count 4.46 X10*6/uL (4.60-5.80); Red Cell Distribution Width 13.5 % (11.0-16.0); White Blood Count 5.2 X10*3/uL (4.8-10.8)
[2024-07-30 10:50] LABS: Alanine Aminotransferase 17 U/L (0-40); Albumin Level 4.1 g/dL (3.5-5.0); Alkaline Phosphatase 69 U/L (39-117); Anion Gap 11 (12-20); Aspartate Amino Transferase 19 U/L (5-37); Bilirubin Total 0.8 mg/dL (0.0-1.0); Blood Urea Nitrogen 12 mg/dL (9-16); Carbon Dioxide 28 mmol/L (22-29); Chloride 109 mmol/L (96-108); Cholesterol 157 mg/dL (<200); Estimated Glomerular Filt Rate > 60; Glucose Fasting 103 mg/dL (60-99); HDL Cholesterol 41 mg/dL (>40); LDL Cholesterol Calculated 101 mg/dL (<100); Potassium 3.8 mmol/L (3.3-5.1); Sodium 144 mmol/L (135-145); Total Protein 6.8 g/dL (6.5-8.0); Triglycerides 76 mg/dL (<150)
[2024-07-30 11:10] LABS: Prostate Specific Antigen Scr 1.13 ng/mL (<0.05-4.0)
== END 2024-07-30 08:21 | disposition home or self-care (01) ==
LOC: HO.HMGCLDS 08:20
PROVIDERS: PCP Internal Medicine; Visit Provider Internal Medicine
DX: J44.9 Chronic obstructive pulmonary disease, unspecified (principal); M19.90 Unspecified osteoarthritis, unspecified site; N40.0 Benign prostatic hyperplasia without lower urinary tract symptoms; Z12.5 Encounter for screening for malignant neoplasm of prostate
CPT/HCPCS: 36415; 80053; 80061; 84153; 85025

== ENCOUNTER 2024-09-27 10:35 | Emergency (ER) | payer MEDICARE, SELFPAY ==
--- NOTE | ~2024-09-27 | CT_ITS ---
EXAMINATION: CT HEAD WITHOUT CONTRAST CLINICAL INFORMATION: trip and fall, pain, headstrike COMPARISON: August 27, 2023 TECHNIQUE: Contiguous axial imaging was performed from the skull base to vertex without intravenous administration of contrast. This CT examination was performed using dose optimization techniques as appropriate, variously including the following: *Automated exposure control *Adjustment of mA and/or kV according to patient size (this includes techniques or standardized protocols for targeted exams where dose is matched to indication/reason for exam; i.e. extremities or head) *Use of iterative reconstruction technique DLP: 742.33 mGy-cm FINDINGS: The bony calvarium is intact. The skull base is intact. No gross soft tissue contusion. No acute intracranial hemorrhage, mass effect, midline shift, hydrocephalus or herniation. Strauss-white matter differentiation is normal. Prominence of the extra-axial CSF spaces cerebral sulci, cerebellar folia. Sellar/suprasellar region demonstrated no gross masses or hemorrhage. Craniocervical junction is intact. Calcified plaques in the V4 segments and the cavernous supracavernous segments both ICAs. No gross hematoma in the intraconal or extraconal compartments of the orbits. Trace of air-fluid levels in the frontal sinuses. Tympanic cavities and mastoid cells are aerated. Probable bony island in the superior right orbit wall. CT/CT head/brain wo IV con IMPRESSION: No acute fracture, bony calvarium. No acute intracranial hemorrhage. Global cerebral atrophy more pronounced in the cerebellum. Electronically signed by: Billy Rick MD 09/27/2024 12:06 PM [facility]
--- NOTE | ~2024-09-27 | CT_ITS ---
EXAMINATION: CT CHEST WITHOUT CONTRAST CLINICAL INFORMATION: Status post fall. COMPARISON: None available. TECHNIQUE: Multidetector volumetric CT imaging of the chest was done. Axial MIP volume rendering provided. Sagittal and coronal reformatted images were obtained. This CT examination was performed using dose optimization techniques as appropriate, variously including the following: *Automated exposure control *Adjustment of mA and/or kV according to patient size (this includes techniques or standardized protocols for targeted exams where dose is matched to indication/reason for exam; i.e. extremities or head) *Use of iterative reconstruction technique. DLP: 396 mGy centimeter. 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 LUNGS: No pneumothorax. No gross lung contusion. Atelectasis lung bases. No bronchiectasis. No honeycombing. Nonspecific subcentimeter pulmonary nodules, right lung. Respiratory airways is patent. MEDIASTINUM: No pneumomediastinum. No hemomediastinum. No hemopericardium. No lymphadenopathy. No aneurysm, thoracic aorta. Calcified plaques in the thoracic aorta wall and its main branches mostly the left subclavian artery. No pericardial effusion. CORONARY ARTERY CALCIFICATION: Calcified plaques. PLEURA: No hemothorax. No pleural effusion. No pneumothorax. AXILLA: No lymphadenopathy. UPPER ABDOMEN: Renal cortical thinning. Vascular complications in both renal hilum. Probable nonobstructing nephrolithiasis. Calcified plaques in the abdominal aorta wall and the origin of the mesenteric arteries and main renal arteries. OSSEOUS STRUCTURES: Soft tissue contusion/hematoma with the comminuted displaced fracture or dislocation of the left clavicle at the sternomanubrial junction. The left acromioclavicular joint is intact. The left scapula is intact. No acute rib fractures. Old rib fractures in the right hemithorax. The right scapula is intact. No acute fracture or listhesis in the axial skeleton. CT/CT chest wo IV con IMPRESSION: Acute comminuted displaced fracture in the left clavicle at the sternomanubrial junction without seated moderate volume hematoma. No acute intrathoracic injury. Fleischner guidelines were followed. Electronically signed by: Billy Rick MD 09/27/2024 02:06 PM [facility] [place]
--- NOTE | ~2024-09-27 | CT_ITS ---
EXAMINATION: CT CERVICAL SPINE WITHOUT CONTRAST CLINICAL INFORMATION: Trip, fall, head strike. COMPARISON: 08/27/2023. TECHNIQUE: Spiral CT examination of the cervical spine in axial plane without contrast. Multiplanar reformatted images were constructed from the axial data set. This CT examination was performed using dose optimization techniques as appropriate, variously including the following: *Automated exposure control *Adjustment of mA and/or kV according to patient size (this includes techniques or standardized protocols for targeted exams where dose is matched to indication/reason for exam; i.e. extremities or head) *Use of iterative reconstruction technique FINDINGS: There is a mild levoconvex scoliosis. A mild reversal of the normal lordosis, centered at C5. Minimal wedging of the ventral C5 vertebral body, chronic. No fractures, additional compression deformities, evidence of traumatic malalignment, or suspicious bone lesion. Craniocervical junction and C1-2 articulation are intact and aligned. Normal facet alignment. Multilevel degenerative spondylosis is unchanged from the prior examination. Moderate canal stenosis suspected C3-4, and C5-6 within confines of modality limitation. There is no prevertebral soft tissue abnormality. Thyroid is diminutive. Imaged lung apices clear. CT/CT cervical spine wo IV con IMPRESSION: 1. Stable examination. No CT evidence of acute cervical spine fracture or injury. 2. Stable degenerative spondylosis. See above. Electronically signed by: Fran Tam MD 09/27/2024 12:05 [place] [facility] [place]
--- NOTE | ~2024-09-27 | XR_ITS ---
EXAMINATION: XR SHOULDER, LEFT XR CLAVICLE, LEFT CLINICAL INFORMATION: fall COMPARISON: None available. TECHNIQUE: Three views of the left shoulder. 2 views left clavicle. FINDINGS: No fracture, dislocation, or suspicious bone lesion. No malalignment. Mild to moderate degenerative arthrosis glenohumeral joint. Mild spurring of the superior humeral head immediately anterior to the greater tuberosity. Moderate spurring of the AC joint with calcified pannus extending significantly superiorly to the joint. Mild undersurface spurring. No loss of subacromial space. Neutral lateral acromion without spurs. There is mild/faint calcification of the supraspinatus tendon consistent with calcific tendinopathy. Remainder of the bony and soft tissue structures appear normal. XR/XR clavicle LT IMPRESSION: 1. No acute findings left shoulder. Degenerative changes. 2. [id number] calcific tendinopathy of the rotator cuff. 3. Calcified pannus arises and extends significantly superiorly from the AC joint. 4. Clavicle intact. Electronically signed by: Fran Tam MD 09/27/2024 12:10 PM [facility]
--- NOTE | ~2024-09-27 | XR_ITS ---
EXAMINATION: XR SHOULDER, LEFT XR CLAVICLE, LEFT CLINICAL INFORMATION: fall COMPARISON: None available. TECHNIQUE: Three views of the left shoulder. 2 views left clavicle. FINDINGS: No fracture, dislocation, or suspicious bone lesion. No malalignment. Mild to moderate degenerative arthrosis glenohumeral joint. Mild spurring of the superior humeral head immediately anterior to the greater tuberosity. Moderate spurring of the AC joint with calcified pannus extending significantly superiorly to the joint. Mild undersurface spurring. No loss of subacromial space. Neutral lateral acromion without spurs. There is mild/faint calcification of the supraspinatus tendon consistent with calcific tendinopathy. Remainder of the bony and soft tissue structures appear normal. XR/XR shoulder LT min 2V IMPRESSION: 1. No acute findings left shoulder. Degenerative changes. 2. [id number] calcific tendinopathy of the rotator cuff. 3. Calcified pannus arises and extends significantly superiorly from the AC joint. 4. Clavicle intact. Electronically signed by: Fran Tam MD 09/27/2024 12:10 PM [facility]
[2024-09-27 10:44] VITALS: BP 190/130; PULSE 67; O2SAT 97; BMI 28.0
[2024-09-27 10:56] VITALS: BP 162/92; PULSE 67; RESP 18; TEMP 36.5; O2SAT 95
--- NOTE | 2024-09-27 11:21 | ED_ITS ---
HPI - General Adult General Chief complaint: Fall Stated complaint: mechanical fall, + headstrike, shoulder pain Time Seen by Provider: 09/27/24 11:07 Source: patient and EMS Mode of arrival: EMS Limitations: no limitations History of Present Illness ED Provider: Sydni Wallace PA-C HPI narrative: Patient is a 83 year old assigned male at with a history of unsteady gait - uses a walker, presenting to the emergency department today with left sided shoulder pain after a trip and fall. Patient states that he was working in the basement when he tripped and fell, injuring his left clavicle. Patient states that he did hit his head but did not lose consciousness. Patient denies any dizziness, lightheadedness, abdominal pain, nausea, vomiting, fever, chills, blurry vision, double vision, loss of vision, chest pain, difficulty breathing, shortness of breath, back pain, night sweats, pain with urination, increased urinary frequency, increased urinary urgency, blood in his urine or stool, syncope or a near syncopal episode, bowel incontinence, bladder incontinence, or any other complaints at this time. Relieving factors: immobilization Exacerbating factors: movement Associated symptoms: denies other symptoms Treatments prior to arrival: none Related Data Home Medications ?Medication ?Instructions ?Recorded ?Confirmed lamotrigine 100 mg tablet 150 mg PO BID 01/05/22 02/28/24 tamsulosin 0.4 mg capsule 0.4 mg PO DAILY 01/05/22 02/28/24 tiotropium 2.5 mcg-olodaterol 2.5 2 puff PO DAILY 01/05/22 02/28/24 mcg/actuation mist for inhalation (Stiolto Respimat) Previous Rx's ?Medication ?Instructions ?Recorded diclofenac sodium 1 % topical gel 4 g topical QID #100 grams 02/28/24 Allergies Allergy/AdvReac Type Severity Reaction Status Date / Time niacin Allergy Intermediate Rash Verified 09/27/24 10:45 Review of Systems Constitutional: Constitutional: Reports no additional constitutional complaints, Denies chills, Denies fever(s) and Denies night sweats Eyes: Eyes: Reports no additional eye complaints, Denies blurry vision, Denies change in vision, Denies diplopia, Denies eye discharge, Denies loss of vision and Denies eye pain ENT: Denies dizziness Cardiovascular: Cardiovascular: Reports no additional cardiovascular complaints, Denies chest pain, Denies lightheadedness, Denies Loss of Cons ciousness and Denies dyspnea Respiratory: Respiratory: Reports no additional respiratory complaints and Denies dyspnea Gastrointestinal: Gastrointestinal: Reports no additional gastrointestinal complaints, Denies abdominal pain, Denies melena, Denies hematochezia, Denies change in bowel habits and Denies change in stool character Genitourinary: Genitourinary: Reports no additional male genitourinary complaints, Denies hematuria, Denies oliguria, Denies difficulty urinating, Denies dysuria, Denies urinary frequency, Denies urinary hesitancy, Denies urinary incontinence and Denies urinary urgency Musculoskeletal: Musculoskeletal: Reports no additional musculoskeletal complaints, Denies numbness and Denies tingling Comments: left clavicle injury / pain Neurologic: Denies dizziness, Denies loss of vision, Denies numbness and Denies tingling Psychiatric: Psychiatric: Reports no additional psychiatric complaints Endocrine: Endocrine: Reports no additional endocrine complaints Hematologic/Lymphatic: Hematologic/Lymphatic: Reports no additional hematologic/lymphatic complaints Allergic/Immunologic: Allergic/Immunologic: Reports no additional allergic/immunologic complaints PMFSH Past Medical History Attestation statement: The following information was validated with the patient. Source: old records reviewed and nursing notes reviewed Medical History Degenerative joint disease of left hip Lumbar spondylosis Left hip pain Social History Social History Patient Tobacco Use Status: Former Tobacco user Current occupational status: retired Current occupation: Right hand dominant Physical Exam ED Vital Signs: Vital Signs - 24 hr 09/27/24 10:56 09/27/24 12:11 09/27/24 14:07 Temperature 97.7 F 97.7 F Pulse Rate 67 72 80 Respiratory Rate 18 18 18 Blood Pressure 162/92 H 170/81 H 163/91 H Pulse Oximetry 95 97 97 Oxygen Delivery Method Room Air Room Air Room Air 09/27/24 14:40 Temperature 98.2 F Pulse Rate 88 Respiratory Rate 18 Blood Pressure 150/90 H Pulse Oximetry 97 Oxygen Delivery Method Room Air BMI result Body Mass Index 28.0 Const General: cooperative, no acute distress, alert and awake Nutritional Appearance: well nourished Orientation/consciousness: patient oriented x3 Limitations: no limitations [facility] Head: Yes normal to inspection and Yes atraumatic Ears: hearing grossly normal bilaterally and external ears normal General nose exam: Normal external nose present, no nasal discharge noted and no epistaxis Face and sinus: Yes normal facial exam, No abrasion and No laceration Mouth: Normal oral and palatal mucosa present, no drooling and no muffled voice Eyes General: appearance normal, both eyes and all related structures Periorbital: periorbital findings normal Eyelids: Yes eyelids normal Conjunctivae: conjunctivae normal Pupils: Equal, round and reactive pupils present EOM: EOMs intact bilaterally Neck Neck: Yes normal visual inspection, Yes full ROM and Yes no lymphadenopathy Chest Other: swelling present to the medial left clavicle Resp Effort & Inspection: normal respiratory effort and able to speak in complete sentences GI Inspection: Yes normal to inspection Neuro General: patient oriented x3, moves all extremities and CN's II-XI intact bilaterally Cranial nerves: Yes Equal, round and reactive pupils present Cognition (Neuro): normal cognition Extrem General: Yes normal to inspection, Yes full ROM and Yes capillary refill normal Psych Appearance: grossly normal Mental Status: mental status grossly normal Affect: normal affect Attitude: cooperative Thought process: Normal thought process present Thought content: Normal thought content present Insight: Good insight present (Psych) Medical Decision Making Medical Decision Making MDM Narrative: Patient is a 83 year old assigned male at with a history of unsteady gait - uses a walker, presenting to the emergency department today with left sided shoulder pain after a trip and fall. Patient's physical exam was as noted in the physical exam portion of this note. Patient's CT head and c-spine showed no acute process. Patient's left shoulder and clavicle x-rays showed no acute process. Patient's CT chest showed an acute comminuted displaced fracture in the left clavicle at the sternomanubrial junction with a soft tissue hematoma. I spoke to the orthopedic team who recommended putting the patient in a sling and having him follow up on an outpatient basis with them. I explained my physical exam findings as well as all test results to the patient and the patient's . I answered all questions asked by the patient and the patient's . Patient's left upper extremity was placed in a sling, without incident. Patient's PMS was intact prior to and after sling placement. I stressed the importance of the patient taking his medication as directed (either prescribed or as the over the counter packaging recommends). I stressed the importance of the patient f ollowing up with his primary care provider and an orthopedic provider. I stressed the importance of the patient returning to the emergency department immediately if his symptoms were to worsen or if he were to develop any dizziness, shortness of breath, difficulty breathing, chest pain, blurry vision, loss of vision, nausea, vomiting, abdominal pain, fever, chills, back pain, or any other complaints. Patient and the patient's verbalized agreement and understanding with this treatment plan and discharge. Differential Diagnosis Differential Diagnoses: The differential diagnosis associated with the presentation includes Left clavicle fracture Trip and fall Admission/Observation Consideration of admission/observation: Escalation of care including admission/observation considered Patient would have been admitted to the hospital had his work up had any findings where hospital admission was appropriate and his clinical presentation warranted hospital admission. Independent Interpretation I performed an independent interpretation of an: Plain X-Ray and CT Scan Interpretation: My interpretation is in agreement with the radiologist's impression of these imaging studies. Report Number: [id number]: Total DLP = 445.77 mGy-cm EXAMINATION: CT CERVICAL SPINE WITHOUT CONTRAST CLINICAL INFORMATION: Trip, fall, head strike. COMPARISON: 08/27/2023. TECHNIQUE: Spiral CT examination of the cervical spine in axial plane without contrast. Multiplanar reformatted images were constructed from the axial data set. This CT examination was performed using dose optimization techniques as appropriate, variously including the following: *Automated exposure control *Adjustment of mA and/or kV according to patient size (this includes techniques or standardized protocols for targeted exams where dose is matched to indication/reason for exam; i.e. extremities or head) *Use of iterative reconstruction technique FINDINGS: There is a mild levoconvex scoliosis. A mild reversal of the normal lordosis, centered at C5. Minimal wedging of the ventral C5 vertebral body, chronic. No fractures, additional compression deformities, evidence of traumatic malalignment, or suspicious bone lesion. Craniocervical junction and C1-2 articulation are intact and aligned. Normal facet alignment. Multilevel degenerative spondylosis is unchanged from the prior examination. Moderate canal stenosis suspected C3-4, and C5-6 within confines of modality limitation. There is no prevertebral soft tissue abnormality. Thyroid is diminutive. Imaged lung apices clear. CT/CT cervical spine wo IV con IMPRESSION: 1. Stable examination. No CT evidence of acute cervical spine fracture or injury. 2. Stable degenerative spondylosis. See above. Electronically signed by: Fran Tam MD 09/27/2024 12:05 PM [facility] [place] By: Fran Tam MD Signed By: Electronically signed by Fran Tam MD 09/27/24 1205 Report Number: [id number]: Total DLP = 752.58 mGy-cm EXAMINATION: CT HEAD WITHOUT CONTRAST CLINICAL INFORMATION: trip and fall, pain, headstrike COMPARISON: August 27, 2023 TECHNIQUE: Contiguous axial imaging was performed from the skull base to vertex without intravenous administration of contrast. This CT examination was performed using dose optimization techniques as appropriate, variously including the following: *Automated exposure control *Adjustment of mA and/or kV according to patient size (this includes techniques or standardized protocols for targeted exams where dose is matched to indication/reason for exam; i.e. extremities or head) *Use of iterative reconstruction technique DLP: 742.33 mGy-cm FINDINGS: The bony calvarium is intact. The skull base is intact. No gross soft tissue contusion. No acute intracranial hemorrhage, mass effect, midline shift, hydrocephalus or herniation. Strauss-white matter differentiation is normal. Prominence of the extra-axial CSF spaces cerebral sulci, cerebellar folia. Sellar/suprasellar region demonstrated no gross masses or hemorrhage. Craniocervical junction is intact. Calcified plaques in the V4 segments and the cavernous supracavernous segments both ICAs. No gross hematoma in the intraconal or extraconal compartments of the orbits. Trace of air-fluid levels in the frontal sinuses. Tympanic cavities and mastoid cells are aerated. Probable bony island in the superior right orbit wall. CT/CT head/brain wo IV con IMPRESSION: No acute fracture, bony calvarium. No acute intracranial hemorrhage. Global cerebral atrophy more pronounced in the cerebellum. Electronically signed by: Billy Rick MD 09/27/2024 12:06 PM EST RP Dictated By: Billy Cruz MD Signed By: Electronically signed by Billy Beard MD 09/27/24 1206 EXAMINATION: XR SHOULDER, LEFT XR CLAVICLE, LEFT CLINICAL INFORMATION: fall COMPARISON: None available. TECHNIQUE: Three views of the left shoulder. 2 views left clavicle. FINDINGS: No fracture, dislocation, or suspicious bone lesion. No malalignment. Mild to moderate degenerative arthrosis glenohumeral joint. Mild spurring of the superior humeral head immediately anterior to the greater tuberosity. Moderate spurring of the AC joint with calcified pannus extending significantly superiorly to the joint. Mild undersurface spurring. No loss of subacromial space. Neutral lateral acromion without spurs. There is mild/faint calcification of the supraspinatus tendon consistent with calcific tendinopathy. Remainder of the bony and soft tissue structures appear normal. XR/XR clavicle LT IMPRESSION: 1. No acute findings left shoulder. Degenerative changes. 2. [id number] calcific tendinopathy of the rotator cuff. 3. Calcified pannus arises and extends significantly superiorly from the AC joint. 4. Clavicle intact. Electronically signed by: Fran Tam MD 09/27/2024 12:10 PM EST RP Dictated By: Fran Tam MD Signed By: Electronically signed by Fran Tam MD 09/27/24 1210 Report Number: [id number]: Total DLP = 396.00 mGy-cm EXAMINATION: CT CHEST WITHOUT CONTRAST CLINICAL INFORMATION: Status post fall. COMPARISON: None available. TECHNIQUE: Multidetector volumetric CT imaging of the chest was done. Axial MIP volume rendering provided. Sagittal and coronal reformatted images were obtained. This CT examination was performed using dose optimization techniques as appropriate, variously including the following: *Automated exposure control *Adjustment of mA and/or kV according to patient size (this includes techniques or standardized protocols for targeted exams where dose is matched to indication/reason for exam; i.e. extremities or head) *Use of iterative reconstruction technique. DLP: 396 mGy centimeter. 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 LUNGS: No pneumothorax. No gross lung contusion. Atelectasis lung bases. No bronchiectasis. No honeycombing. Nonspecific subcentimeter pulmonary nodules, right lung. Respiratory airways is patent. MEDIASTINUM: No pneumomediastinum. No hemomediastinum. No hemopericardium. No lymphadenopathy. No aneurysm, thoracic aorta. Calcified plaques in the thoracic aorta wall and its main branches mostly the left subclavian artery. No pericardial effusion. CORONARY ARTERY CALCIFICATION: Calcified plaques. PLEURA: No hemothorax. No pleural effusion. No pneumothorax. AXILLA: No lymphadenopathy. UPPER ABDOMEN: Renal cortical thinning. Vascular complications in both renal hilum. Probable nonobstructing nephrolithiasis. Calcified plaques in the abdominal aorta wall and the origin of the mesenteric arteries and main renal arteries. OSSEOUS STRUCTURES: Soft tissue contusion/hematoma with the comminuted displaced fracture or dislocation of the left clavicle at the sternomanubrial junction. The left acromioclavicular joint is intact. The left scapula is intact. No acute rib fractures. Old rib fractures in the right hemithorax. The right scapula is intact. No acute fracture or listhesis in the axial skeleton. CT/CT chest wo IV con IMPRESSION: Acute comminuted displaced fracture in the left clavicle at the sternomanubrial junction without seated moderate volume hematoma. No acute intrathoracic injury. Fleischner guidelines were followed. Electronically signed by: Billy Rick MD 09/27/2024 02:06 PM [facility] [place]ict[place] By: Billy Cruz MD Signed By: Electronically signed by Billy Beard MD 09/27/24 1407 Radiology Impression Discussion of test interpretation with radiology: I have reviewed the radiologist's reading. Independent Historian Clinical information obtained from an independent historian. History obtained from or confirmed by: EMS (EMS provided additional history and confirmed the history provided by the patient.) Discharge Plan Discharge Clinical Impression: Broken clavicle Patient Disposition: Home, Self-Care Instructions: Clavicle Fracture (ED) Additional Instructions: Wear your sling as directed. Every 1 hour spend 10 minutes exercising your left ELBOW only to avoid freezing the joint. Follow up with your primary care provider and an orthopedic provider. Return to the emergency department immediately if your symptoms worsen or if you develop any dizziness, shortness of breath, difficulty breathing, chest pain, blurry vision, loss of vision, nausea, vomiting, abdominal pain, fever, chills, back pain, or any other complaints. Prescriptions: No Action tamsulosin 0.4 mg capsule 0.4 mg PO DAILY lamotrigine 100 mg tablet 150 mg PO BID Stiolto Respimat 2.5-2.5 mcg/actuation mist 2 puff PO DAILY diclofenac sodium 1 % gel 4 g topical QID Qty: 100 5RF Rx Instructions: apply to painful area up to QID Referrals: [facility] – [place] [facility] [Provider Group] (Call to establish and follow up with an orthopedic provider. ) Kwabena Acuña MD [Primary Care Provider] - Interventions: ED Discharge Assessment Last Done: 09/27/24 14:40 Discharge Date/Time: 09/27/24 14:40 Print Language: Tamazight
[2024-09-27 12:11] VITALS: BP 170/81; PULSE 72; RESP 18; TEMP 36.5; O2SAT 97
[2024-09-27 14:07] VITALS: BP 163/91; PULSE 80; RESP 18; O2SAT 97
[2024-09-27 14:40] VITALS: BP 150/90; PULSE 88; RESP 18; TEMP 36.8; O2SAT 97
== END 2024-09-27 14:40 | disposition home or self-care (01) ==
PROVIDERS: Emergency Provider Emergency Medicine Emergency Medical Services; PCP Internal Medicine
DX: S42.002A Fracture of unspecified part of left clavicle, initial encounter for closed fracture (principal); R51.9 Headache, unspecified; M54.2 Cervicalgia; M25.512 Pain in left shoulder; R07.89 Other chest pain; W01.0XXA Fall on same level from slipping, tripping and stumbling without subsequent striking against object, initial encounter; Y93.9 Activity, unspecified; Y92.009 Unspecified place in unspecified non-institutional (private) residence as the place of occurrence of the external cause; Y99.8 Other external cause status; Z79.899 Other long term (current) drug therapy
CPT/HCPCS: 70450; 71250; 72125; 73000; 73030; 99283; 99284

== ENCOUNTER → 2024-09-27 11:54 | Outpatient (BNV) | payer MEDICARE, SELFPAY | PROVIDERS: Emergency Provider Emergency Medicine Emergency Medical Services; PCP Internal Medicine; Visit Provider Radiology Diagnostic Radiology | DX: M75.32 Calcific tendinitis of left shoulder (principal); S42.002A Fracture of unspecified part of left clavicle, initial encounter for closed fracture; M47.892 Other spondylosis, cervical region; S09.90XA Unspecified injury of head, initial encounter | CPT/HCPCS: 70450; 71250; 72125; 73000; 73030 ==

== ENCOUNTER 2024-10-09 08:25 | Outpatient (REF) | payer MEDICARE, SELFPAY ==
--- NOTE | ~2024-10-09 | XR_ITS ---
EXAMINATION: XR CLAVICLE, LEFT CLINICAL INFORMATION: M89.8X1 - Other specified disorders of bone, shoulder COMPARISON: X-rays of the shoulder and left clavicle 09/27/2024. TECHNIQUE: Two views of the left clavicle. FINDINGS: Clavicle is intact. No healing or acute fracture. Redemonstration of calcified pannus arising superiorly from the joint. There is moderate undersurface spurring. Normal alignment. There is calcification of the supraspinatus tendon again noted. Normal glenohumeral joint alignment. Soft tissues otherwise normal. XR/XR clavicle LT IMPRESSION: No significant interval change. Electronically signed by: Fran Tam MD 10/10/2024 10:24 AM [facility]
== END 2024-10-09 08:26 | disposition home or self-care (01) ==
LOC: HO.HOSX 08:25
PROVIDERS: Visit Provider Physician Assistant
DX: M89.8X1 Other specified disorders of bone, shoulder (principal); S42.002A Fracture of unspecified part of left clavicle, initial encounter for closed fracture
CPT/HCPCS: 73000; 99212

== ENCOUNTER 2024-10-09 12:51 | Outpatient (AMB) | payer MEDICARE, SELFPAY ==
--- NOTE | 2024-10-09 13:03 | A.OFFVIS_ITS ---
Vital Signs 10/09/24 13:08 Height 6 ft 1 in Weight 220 lb BMI 29.0 Intake Visit Reasons: FC - left clavicle fx, DOI 09/27/24 Intake Note: Cirilo is an 83 year old male who presents today for an ER follow up of left clavicle fx s/p fall, DOI 09/27/24. Patient reports that he fell while working in his basement. He presented to [facility] where x-rays were taken, placed in a sling and referred to orthopedics. Patient reports he is doing well, states no pain very mild discomfort that is mostly caused from sling use. Allergies niacin Allergy (Intermediate, Verified 10/09/24 13:09) Rash HPI HPI FC - left clavicle fx, DOI 09/27/24: Details: Mr. Grider is an 83-year-old male who presents to the office today for follow up of left clavicle fx s/p fall, DOI 09/27/24. Patient reports that he fell while working in his basement. He presented to [facility] ER where x-rays were taken, placed in a sling and referred to orthopedics. Patient reports he is doing well, states no pain very mild discomfort that is mostly caused from sling use. [facility] Medical History Degenerative joint disease of left hip Lumbar spondylosis Left hip pain Social History Patient Tobacco Use Status: Former Tobacco user Current occupational status: retired Current occupation: Right hand dominant Review of Systems Const All systems reviewed & are unremarkable except as noted in HPI and below Physical Exam Vital Signs: BMI result Body Mass Index 29.0 Const General: cooperative, healthy appearing and no acute distress Resp Effort & Inspection: normal respiratory effort and able to speak in complete sentences Cardio Rate: regular rate Peripheral pulses: Peripheral pulses 2+ throughout Skin Lesions: no lesions Rashes: no rashes Extrem Other: Right shoulder: Forward flexion and abduction to end range. Mild pain with cross-body reach. Palpable and visual deformity at the sternomanubrial junction. at the fracture site. Denies any numbness or tingling. Assessment & Plan Assessment & Plan (1) Closed left clavicular fracture: Code(s): S42.002A - Fracture of unspecified part of left clavicle, initial encounter for closed fracture Category: Medical Plan Mr. Grider is an 83-year-old male who presents to the office today for follow up of left clavicle fx s/p fall, DOI 09/27/24. Patient reports that he fell while working in his basement. He presented to [facility] where x-rays were taken, placed in a sling and referred to orthopedics. Patient reports he is doing well, states no pain very mild discomfort that is mostly caused from sling use. On the office today we discussed that the patient may discontinue the sling use. The sling may be used for comfort only. I instructed the patient that he should limit his overhead motion for the next 4-6 weeks using pain as his guide. We did discuss the role of physical therapy however the patient is doing very well with motion at this time. There is no additional orthopedic intervention needed at this time and anticipate that the fracture will heal well on its own over the next 6-8 weeks. X-rays of the left clavicle which were obtained while in the office today and were reviewed by me, Anna Marshall PA-C, revealed repeat demonstration of the fracture at the sternomanubrial junction. Orders: Orders XR clavicle LT 10/09/24 M89.8X1 - Other specified disorders of bone, shoulder Coding Level of Care Code New Pt Level 3 (19535) Diagnoses Closed left clavicular fracture S42.002A
[2024-10-09 13:08] VITALS: BMI 29.0
== END 2024-10-09 13:42 | disposition home or self-care (01) ==
PROVIDERS: PCP Internal Medicine; Visit Provider Physician Assistant
DX: S42.002A Fracture of unspecified part of left clavicle, initial encounter for closed fracture (principal)
CPT/HCPCS: 99213

== ENCOUNTER → 2024-10-09 12:54 | Outpatient (BNV) | payer MEDICARE, SELFPAY | PROVIDERS: Visit Provider Radiology Diagnostic Radiology | DX: M89.8X1 Other specified disorders of bone, shoulder (principal) | CPT/HCPCS: 73000 ==

== ENCOUNTER 2024-10-17 08:40 | Outpatient (AMB) | payer MEDICARE, SELFPAY ==
--- NOTE | 2024-10-17 08:58 | A.OFFVIS_ITS ---
Vital Signs 10/17/24 09:04 Height 6 ft 1 in Weight 200 lb BMI 26.4 Intake Visit Reasons: OV-Lower back pain-follow up Intake Note: Cirilo presents today for his follow up visit for his right hip pain and lower back. States his pain has improved and is doing better however he is having pain in his knees now. Patient mentioned he had to D/C his medication due to having b lack stool. He is not sure which medication it was. Allergies niacin Allergy (Intermediate, Verified 10/17/24 09:07) Rash Medication List - Last Reconciled 10/17/24 by Becky Perez MD lamotrigine 150 mg PO BID tamsulosin 0.4 mg PO DAILY tiotropium-olodaterol 2.5-2.5 mcg/actuation (Stiolto Respimat) 2 puffs PO DAILY HPI Comments Details: I last saw patient 02/28/2024 mainly for left groin pain that had improved already. Although overall he has degenerative changes/osteoarthritis on his knees, hips, SI joints, lumbar spine. He was at that time managing tolerably and remains functional. He was recently seen by ortho 10/09/2024 as follow up of left clavicle fx s/p fall, DOI 09/27/24. Patient reports that he fell while working in his basement. Ortho said that there is no additional orthopedic intervention needed at this time and anticipate that the fracture will heal well on its own over the next 6- 8 weeks. Patient says it's going very well, no pain. Full shoulder/neck/arms full ROM. Left hip already feeling pretty good, outside of the fall he had last September. Been using OTC diclofenac gel. Wondering if he can use on knees. On/off knee pain, no swelling. He did notice tailbone pain after the fall, but he is not in pain now and he's been walking and functional since. Denies any head trauma. His PCP is Dr. Acuña, appointment on November 01. Will mention episode of black stool. [facility] Medical History Degenerative joint disease of left hip Lumbar spondylosis Left hip pain Social History Patient Tobacco Use Status: Former Tobacco user Current occupational status: retired Current occupation: Right hand dominant Physical Exam Vital Signs: BMI result Body Mass Index 26.4 Results Reviewed Results Reviewed: Ordering Physician: Becky Hernandez Date of Service: 01/25/24 Procedure(s): XR hip LT min 2V Accession Number(s): [id number] cc: Becky HernandezSherry EXAMINATION: XR LUMBAR SPINE XR HIP, LEFT CLINICAL INDICATION: Back pain, patient unable to stand per technologist. COMPARISON: Sacroiliac joints 11/13/2023. TECHNIQUE: 3 views of the lumbar spine. 2 views of the left hip. FINDINGS: LUMBAR SPINE: The bones are diffusely demineralized. Degenerative changes of the bilateral sacroiliac joints. 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 Multilevel lumbar spondylosis with multilevel loss of disc space height most notable at L5-S1. Grade 1 anterolisthesis of L5 on S1. Minimal grade 1 retrolisthesis of L1 on L2, L2 on L3, and L3 on L4. LEFT HIP: The bones are diffusely demineralized. Surgical sutures overlie the sacrum. Moderate degenerative changes with joint space narrowing and hypertrophic change involving left hip. Amorphous calcifications in the soft tissues adjacent to the left hip and left greater trochanter. XR/XR hip LT min 2V IMPRESSION: 1. Multilevel lumbar spondylosis most notable at L5-S1. 2. 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 3. Moderate degenerative changes in the left hip. Assessment & Plan Assessment & Plan (1) Degenerative joint disease of left hip: Code(s): M16.12 - Unilateral primary osteoarthritis, left hip Category: Medical Qualifiers: Osteoarthritis type: primary Qualified Code(s): M16.12 - Unilateral primary osteoarthritis, left hip (2) Right knee pain: Code(s): M25.561 - Pain in right knee Category: Medical Qualifiers: Chronicity: chronic Qualified Code(s): M25.561 - Pain in right knee; G89.29 - Other chronic pain (3) Left knee pain: Code(s): M25.562 - Pain in left knee Category: Medical Qualifiers: Chronicity: chronic Qualified Code(s): M25.562 - Pain in left knee; G89.29 - Other chronic pain Plan Overall he has degenerative changes/osteoarthritis on his knees, hips, SI joints, lumbar spine. No signs of active inflammation in knees or hips. He continues to be functional, with tolerable on and off pain only. Managing with [id number]-pxphqep diclofenac gel. Instructions discussed. Assessment and plan discussed with patient, and patient was agreeable. All questions were answered thoroughly. Follow up as needed. Becky Perez MD, JENNIFER Board Certified, [place] [employer] and [employer] (ABPMR) Board Certified, [place] [employer] (ABEM) Coding Level of Care Code Est Pt Level 3 (49683) Diagnoses Primary osteoarthritis of left hip M16.12 Osteoarthritis type: primary Chronic pain of right knee M25.561; G89.29 Chronicity: chronic Chronic pain of left knee M25.562; G89.29 Chronicity: chronic
[2024-10-17 09:04] VITALS: BMI 26.4
== END 2024-10-17 09:28 | disposition home or self-care (01) ==
PROVIDERS: PCP Internal Medicine; Visit Provider Physical Medicine & Rehabilitation
DX: M16.12 Unilateral primary osteoarthritis, left hip (principal); M25.561 Pain in right knee; G89.29 Other chronic pain; M25.562 Pain in left knee
CPT/HCPCS: 99213

== ENCOUNTER → 2024-10-17 08:40 | Outpatient (BNVA) | payer MEDICARE, SELFPAY | PROVIDERS: PCP Internal Medicine; Visit Provider Physical Medicine & Rehabilitation | DX: M16.12 Unilateral primary osteoarthritis, left hip (principal); M25.561 Pain in right knee; M25.562 Pain in left knee; G89.29 Other chronic pain | CPT/HCPCS: 99212 ==

== ENCOUNTER 2025-01-29 09:14 | Outpatient (AMB) | payer MEDICARE, SELFPAY ==
--- NOTE | 2025-01-29 09:25 | MHC.PC.OV ---
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 Required: No Accompanied by: Self / Same As Patient Allergies niacin Allergy (Intermediate, Verified 01/29/25 09:28) Rash Medication List - Last Reconciled 01/29/25 by CHRISTIANE So lamotrigine 150 mg PO BID multivitamin 1 tab PO DAILY tamsulosin 0.4 mg PO DAILY tiotropium-olodaterol 2.5-2.5 mcg/actuation (Stiolto Respimat) 2 puffs PO DAILY HPI HPI Comments History of Present Illness Details 84 year old male with history of epilepsy, COPD, BPH, osteoarthritis of multiple joints, macular degeneration, personal history colon cancer presents to the office today for management of chronic conditions and to establish care. Epilepsy-last seizure 50+ years ago. No longer following with Neurology. Stable on Lamictal Osteoarthritis of multiple joints-bilateral knees, bilateral shoulders, bilateral hips, lumbar spine. Following with physiatry and using diclofenac gel. He is ambulating with a cane with somewhat unsteady gait. Has a history of falls, but remote. Requesting handicap placard BPH-tamsulosin, controlled COPD-controlled with Stiolto. No recent exacerbation ROS: General: No fevers, malaise, unintentional weight loss HEENT: No blurred vision, diplopia. No sore throat, nasal congestion, rhinorrhea, sinus pain, ear pain Cardiovascular: No chest pain, palpitations, or leg edema Respiratory: No shortness of breath, wheezing, cough MSK: see hpi Neuro: No headaches, weakness, paresthesias Skin: No rashes or lesions EXAM: Constitutional - Awake and Alert, No apparent distress Eyes - PERRLA, EOMI Cardiovascular - S1S2, RRR, No edema Respiratory - Normal lung expansion, Normal respiratory effort, No respiratory distress, CTA bilaterally Extremities - no calf tenderness bilaterally, no swelling Skin - Warm/Dry Neurological - Alert & oriented x3, ambulating with cane, slow gait Psychological - Appropriate affect [facility] Medical History (Updated 01/29/25 @ 10:32 by CHRISTIANE So) Epilepsy BPH (benign prostatic hyperplasia) Osteoarthritis involving multiple joints on both sides of body COPD (chronic obstructive pulmonary disease) Degenerative joint disease of left hip Lumbar spondylosis Left hip pain Social History Patient Tobacco Use Status: Former Tobacco user Current occupational status: retired Current occupation: Right hand dominant Physical exam (Primary Care) Vital Signs: Last Vital Signs Temp 97.7 F 01/29/25 09:27 Pulse 96 01/29/25 09:27 Resp 16 01/29/25 09:27 BP 130/60 01/29/25 09:27 Pulse Ox 97 01/29/25 09:27 Oxygen Delivery Method Room Air 01/29/25 09:27 BMI result Body Mass Index 29.2 Tobacco/Smoking Status: Tobacco use Status Patient Tobacco Use Status Former Tobacco user 01/29/25 09:27 Advance Care Planning discussion: Exists, not on file Date of discussion: 01/29/25 Forms completed: [facility] Time spent: 1-15 minutes, not on file Coding Level of Care Code New Pt Level 4 (21210) Complex EM visit Add On G2211 Diagnoses COPD (chronic obstructive pulmonary disease) J44.9 Osteoarthritis involving multiple joints on both sides of body M15.9 Unsteady gait R26.81 BPH (benign prostatic hyperplasia) N40.0 Epilepsy G40.909 Additional Codes Vital Signs *Quality* - Advance Care Planning discussion: Exists, not on file ([id number]) Vital Signs *Quality* - Time spent: 1-15 minutes, not on file ([id number]) Assessment & Plan Assessment & Plan (1) COPD (chronic obstructive pulmonary disease): Code(s): J44.9 - Chronic obstructive pulmonary disease, unspecified Category: Medical Plan: Stable. Continue use of maintenance inhalers (2) Osteoarthritis involving multiple joints on both sides of body: Code(s): M15.9 - Polyosteoarthritis, unspecified Category: Medical Plan: Continue following with physiatry. Continue use of diclofenac gel which he is purchasing [id number]-ermkqdi (3) Unsteady gait: Code(s): R26.81 - Unsteadiness on feet Category: Medical Plan: Secondary to osteoarthritis of multiple joints. Handicap placard filled out in the room with patient (4) BPH (benign prostatic hyperplasia): Code(s): N40.0 - Benign prostatic hyperplasia without lower urinary tract symptoms Category: Medical Plan: Stable. Continue Flomax (5) Epilepsy: Code(s): G40.909 - Epilepsy, unspecified, not intractable, without status epilepticus Category: Medical Plan: Stable, no recent seizure. Continue Lamictal Plan Follow-up in the office in 4 months. Labs to be completed following visit. [facility] form reviewed Orders: Orders Basic Metabolic Panel Today G40.909 - Epilepsy, unspecified, not intractable, without status epilepticus, J44.9 - Chronic obstructive pulmonary disease, unspecified, N40.0 - Benign prostatic hyperplasia without lower urinary tract symptoms Complete Blood Count Auto Diff Today G40.909 - Epilepsy, unspecified, not intractable, without status epilepticus, J44.9 - Chronic obstructive pulmonary disease, unspecified, N40.0 - Benign prostatic hyperplasia without lower urinary tract symptoms Liver Panel Today G40.909 - Epilepsy, unspecified, not intractable, without status epilepticus, J44.9 - Chronic obstructive pulmonary disease, unspecified, N40.0 - Benign prostatic hyperplasia without lower urinary tract symptoms Lipid Panel Today G40.909 - Epilepsy, unspecified, not intractable, without status epilepticus, J44.9 - Chronic obstructive pulmonary disease, unspecified, N40.0 - Benign prostatic hyperplasia without lower urinary tract symptoms Medications: New tiotropium-olodaterol 2.5-2.5 mcg/actuation (Stiolto Respimat) 2 puffs PO DAILY 4 grams 5RF
[2025-01-29 09:27] VITALS: BP 130/60; PULSE 96; RESP 16; TEMP 36.5; O2SAT 97; BMI 29.2
== END 2025-01-29 10:12 | disposition home or self-care (01) ==
LOC: HO.HMCHD 09:14
PROVIDERS: PCP Internal Medicine; Visit Provider Physician Assistant
DX: J44.9 Chronic obstructive pulmonary disease, unspecified (principal); M15.9 Polyosteoarthritis, unspecified; R26.81 Unsteadiness on feet; N40.0 Benign prostatic hyperplasia without lower urinary tract symptoms; G40.909 Epilepsy, unspecified, not intractable, without status epilepticus; Z00.00 Encounter for general adult medical examination without abnormal findings

== ENCOUNTER → 2025-01-29 09:14 | Outpatient (BNVA) | payer MEDICARE, SELFPAY | PROVIDERS: PCP Internal Medicine; Visit Provider Physician Assistant | DX: J44.9 Chronic obstructive pulmonary disease, unspecified (principal); M15.9 Polyosteoarthritis, unspecified; R26.81 Unsteadiness on feet; N40.0 Benign prostatic hyperplasia without lower urinary tract symptoms; G40.909 Epilepsy, unspecified, not intractable, without status epilepticus | CPT/HCPCS: 99202 ==

== ENCOUNTER 2025-05-28 09:03 | Outpatient (AMB) | payer MEDICARE, SELFPAY ==
--- NOTE | 2025-05-28 08:55 | MHC.PC.OV ---
Vital Signs 05/28/25 09:20 Height 6 ft 1 in Weight 100.244 kg BMI 29.2 BP 130/80 Blood Pressure Location Rt brachial Position Sitting Respiration 16 Pulse 101 H Pulse Source Pulse Oximeter Temp 96.8 F Temp Source Temporal Artery Scan Pulse Oximetry (%) 98 Oxygen Delivery Method Room Air Intake Visit Reasons: routine Cardiopulmonary Specialist Required: No Accompanied by: Self / Same As Patient Allergies niacin Allergy (Intermediate, Verified 05/28/25 08:56) Rash Medication List - Last Reconciled 05/28/25 by CHRISTIANE So lamotrigine 150 mg (1.5 x 100 mg) PO BID multivitamin 1 tab PO DAILY tamsulosin 0.4 mg PO DAILY tiotropium-olodaterol 2.5-2.5 mcg/actuation (Stiolto Respimat) 2 puffs PO DAILY Tobacco use date assessed: 05/28/25 Fall risk assessment: 1 Fall in past year Last assessed Fall Risk: 05/28/25 Dental Screening Dental Screen Date: 05/28/25 Did you have a dental visit in the last 12 months?: Yes Did you have a dental problem in the last 6 months where you did not have access to dental care?: No Was dental information given to patient?: Patient has dentist HPI HPI Comments History of Present Illness Details 84 year old male with history of epilepsy, COPD, BPH, osteoarthritis of multiple joints, macular degeneration, personal history colon cancer presents to the office today for management of chronic conditions and to establish care. Epilepsy-last seizure 50+ years ago. No longer following with Neurology. Stable on Lamictal Osteoarthritis of multiple joints-bilateral knees, bilateral shoulders, bilateral hips, lumbar spine. Following with physiatry and using diclofenac gel. He is ambulating with a cane with somewhat unsteady gait. Has a history of falls, but remote. Has handicap placard BPH-tamsulosin, controlled COPD-controlled with Stiolto. No recent exacerbation Macular degeneration- receiving injections. [facility] Concern: R 2nd toe coming up ROS: General: No fevers, malaise, unintentional weight loss HEENT: No blurred vision, diplopia. No sore throat, nasal congestion, rhinorrhea, sinus pain, ear pain Cardiovascular: No chest pain, palpitations, or leg edema Respiratory: No shortness of breath, wheezing, cough MSK: see hpi Neuro: No headaches, weakness, paresthesias Skin: No rashes or lesions EXAM: Constitutional - Awake and Alert, No apparent distress Eyes - PERRLA, EOMI Cardiovascular - S1S2, RRR, No edema Respiratory - Normal lung expansion, Normal respiratory effort, No respiratory distress, CTA bilaterally Extremities - no calf tenderness bilaterally, no swelling Skin - Warm/Dry. 8mm well-circumscribed black nevus with slightly brown border. Hypertrophic toenails of the right foot with brown/yellow discoloration and significant overgrowth Neurological - Alert & oriented x3, ambulating with cane, slow gait Psychological - Appropriate affect [facility] Medical History (Updated 05/28/25 @ 09:44 by CHRISTIANE So) Epilepsy BPH (benign prostatic hyperplasia) Osteoarthritis involving multiple joints on both sides of body COPD (chronic obstructive pulmonary disease) Degenerative joint disease of left hip Lumbar spondylosis Left hip pain Social History Housing: House Patient Tobacco Use Status: Former Tobacco user Tobacco use type: Cigarette Years Smoked: 20 years e-Cigarette/Vaping Use: Never Used service: No Current occupational status: retired Current occupation: Right hand dominant Questionnaire AUDIT C Alcohol Use Questionnaire (AUDIT-C) 1. How often do you have a drink containing alcohol?: Never 3. How often do you have six or more drinks on one occasion?: Never Total Score: 0 Physical exam (Primary Care) Vital Signs: Last Vital Signs Temp 96.8 F 05/28/25 09:20 Pulse 101 H 05/28/25 09:20 Resp 16 05/28/25 09:20 BP 130/80 05/28/25 09:20 Pulse Ox 98 05/28/25 09:20 Oxygen Delivery Method Room Air 05/28/25 09:20 BMI result Body Mass Index 29.2 Tobacco/Smoking Status: Tobacco use Status Tobacco use date assessed 05/28/25 05/28/25 08:58 Patient Tobacco Use Status Former Tobacco user 05/28/25 08:56 Tobacco use type Cigarette 05/28/25 09:23 e-Cigarette/Vaping Use Never Used 05/28/25 09:23 Coding Level of Care Code Est Pt Level 4 (82734) Complex EM visit Add On G2211 Diagnoses COPD (chronic obstructive pulmonary disease) J44.9 Epilepsy G40.909 Hypertrophic toenail L60.2 Atypical nevus of neck D22.4 Osteoarthritis involving multiple joints on both sides of body M15.9 Assessment & Plan Assessment & Plan (1) COPD (chronic obstructive pulmonary disease): Code(s): J44.9 - Chronic obstructive pulmonary disease, unspecified Category: Medical Plan: Stable. Continue use of maintenance inhalers (2) Epilepsy: Code(s): G40.909 - Epilepsy, unspecified, not intractable, without status epilepticus Category: Medical Plan: Stable, no recent seizure. Continue Lamictal (3) Hypertrophic toenail: Code(s): L60.2 - Onychogryphosis Category: Medical Plan: Referred to Podiatry (4) Atypical nevus of neck: Code(s): D22.4 - Melanocytic nevi of scalp and neck Category: Medical Plan: New in the last 5 years with black discoloration. Concerning nevus. Referred to Dermatology (5) Osteoarthritis involving multiple joints on both sides of body: Code(s): M15.9 - Polyosteoarthritis, unspecified Category: Medical Plan: Continue with diclofenac and follow with podiatry as scheduled Plan Follow-up in the office in 4 months. Labs to be completed following visit. MOLST form reviewed again Orders: Referrals Podiatry Referral B35.1 - Tinea unguium, L60.2 - Onychogryphosis Dermatology Referral D22.4 - Melanocytic nevi of scalp and neck Medications: New lamotrigine 150 mg (1.5 x 100 mg) PO BID 180 tabs 1RF
[2025-05-28 09:20] VITALS: BP 130/80; PULSE 101; RESP 16; TEMP 36; O2SAT 98; BMI 29.2
== END 2025-05-28 09:48 | disposition home or self-care (01) ==
LOC: HO.HMCHD 09:04
PROVIDERS: PCP Internal Medicine; Visit Provider Physician Assistant
DX: J44.9 Chronic obstructive pulmonary disease, unspecified (principal); G40.909 Epilepsy, unspecified, not intractable, without status epilepticus; L60.2 Onychogryphosis; D22.4 Melanocytic nevi of scalp and neck; M15.9 Polyosteoarthritis, unspecified

== ENCOUNTER → 2025-05-28 09:03 | Outpatient (BNVA) | payer MEDICARE, SELFPAY | PROVIDERS: PCP Internal Medicine; Visit Provider Physician Assistant | DX: J44.9 Chronic obstructive pulmonary disease, unspecified (principal); G40.909 Epilepsy, unspecified, not intractable, without status epilepticus; L60.2 Onychogryphosis; D22.4 Melanocytic nevi of scalp and neck; M15.9 Polyosteoarthritis, unspecified; B35.1 Tinea unguium | CPT/HCPCS: 99212 ==

== ENCOUNTER 2025-05-28 11:27 | Outpatient (REF) | payer MEDICARE, SELFPAY ==
[2025-05-28 12:10] LABS: MANUAL DIFF FLAG NO
[2025-05-28 12:17] LABS: Hematocrit 41.7 % (42.0-52.0); Hemoglobin 13.9 g/dl (14.0-18.0); Imm Gran Abs Auto 0.02 X10*3/uL (0.00-0.03); Imm Gran Pct Auto 0.3 % (0.0-0.4); Lymphocytes Absolute Auto 1.6 X10*3/uL (1.2-4.9); Mean Corpuscular HGB Conc 33.3 g/dl (31.0-36.0); Mean Corpuscular Hemoglobin 31.5 pg (27.0-33.0); Mean Corpuscular Volume 94.6 fL (80.0-98.0); NRBC Abs Auto 0.000 X10*3/uL (0.0-0.012); NRBC Pct Auto 0.0 /100WBC (0.0-0.2); Platelet Count 163 X10*3/uL (160-400); Red Blood Count 4.41 X10*6/uL (4.60-5.80); White Blood Count 6.8 X10*3/uL (4.8-10.8)
[2025-05-28 12:30] LABS: Alanine Aminotransferase 17 U/L (0-40); Albumin Level 4.5 g/dL (3.5-5.0); Alkaline Phosphatase 74 U/L (39-117); Anion Gap 9 (12-20); Aspartate Amino Transferase 31 U/L (5-37); Blood Urea Nitrogen 17 mg/dL (9-16); Calcium 9.3 mg/dL (8.4-10.2); Carbon Dioxide 29 mmol/L (22-29); Chloride 111 mmol/L (96-108); Cholesterol 179 mg/dL (<200); Estimated Glomerular Filt Rate > 60; HDL Cholesterol 44 mg/dL (>40); Potassium 4.2 mmol/L (3.3-5.1); Sodium 145 mmol/L (135-145); Total Protein 6.8 g/dL (6.5-8.0); Triglycerides 111 mg/dL (<150)
== END 2025-05-28 11:28 | disposition home or self-care (01) ==
LOC: HO.10HDL 11:27
PROVIDERS: Visit Provider Physician Assistant
DX: Z13.6 Encounter for screening for cardiovascular disorders (principal); G40.909 Epilepsy, unspecified, not intractable, without status epilepticus; N40.0 Benign prostatic hyperplasia without lower urinary tract symptoms; J44.9 Chronic obstructive pulmonary disease, unspecified
CPT/HCPCS: 36415; 80048; 80061; 80076; 85025

== ENCOUNTER 2025-07-03 10:26 | Outpatient (AMB) | payer MEDICARE, SELFPAY ==
[2025-07-03 10:43] VITALS: BMI 29.2
--- NOTE | 2025-07-03 10:43 | A.OFFVIS_ITS ---
Vital Signs 07/03/25 10:43 Height 6 ft 1 in Weight 221 lb BMI 29.2 Intake Visit Reasons: Tinea Unguiam Intake Note: Cirilo is an 84 year old male who presents today as a new patient for an evolution of his tinea unguium of the right 2nd toe. Patient states the fungus has been going on for about 1 year and he has not tried any treatment at this time. Allergies niacin Allergy (Intermediate, Verified 05/28/25 08:56) Rash HPI HPI Tinea Unguiam: Details: 84-year-old male past medical history of COPD, lumbar spondylosis, antalgic gait, hip knee and lumbar osteoarthritis presents for painful elongated toenails. States he had fungus infections to his nail for a long as he can remember. He had trialed a [id number]-[id number] medication in the past, where he noticed some improvement from it. He states that he has not had treatment since then. His 2nd toenail grew exceptionally long and now hurts his big toe. He is unable to trim his own nails due to his arthritis in several joints. The patient ambulates using a cane. [facility] Medical History (Updated 07/03/25 @ 14:52 by Eddie Bojorquez DPM) Epilepsy BPH (benign prostatic hyperplasia) Osteoarthritis involving multiple joints on both sides of body COPD (chronic obstructive pulmonary disease) Degenerative joint disease of left hip Lumbar spondylosis Left hip pain Social History Housing: House Patient Tobacco Use Status: Former Tobacco user Tobacco use type: Cigarette Years Smoked: 20 years e-Cigarette/Vaping Use: Never Used service: No Current occupational status: retired Current occupation: Right hand dominant Review of Systems Const All systems reviewed & are unremarkable except as noted in HPI and below Physical Exam Vital Signs: BMI result Body Mass Index 29.2 Extrem Other: *Bilateral Lower Extremity Focused Foot Exam Vascular: DP/PT mildly pop, CFT<3s to digits, TG warm to cool, no pedal edema, pedal hair absent Derm: Skin: No open lesions, ulcerations, or calluses. Interdigital spaces: Clear, no maceration or fungal infection. Nails: Thickened elongated dystrophic discolored toenails x 10 with subungual debris. Right hallux 2nd nail vertical growth/horn and abutting 2nd toe. Neuro: Vinita-jelena monofilament (10g) test []/10 intact to right foot, []/10 intact to left foot. Msk: mild flexion deformity of digits. moderate pain on palpation of right 2nd toe nail. Footwear Assessment: Shoes inspected; appropriate fit, no excessive wear, or foreign objects noted. Office Procedures AMB Debridement/Avulsion Podia Details: Procedure: Nail debridement Location: 10 nails, bilateral feet Anesthesia: N/A Description: The affected toenails were cleansed with an antiseptic solution. Using sterile nail nippers and a rotary manolo, dystrophic and mycotic nail material was carefully debrided and reduced in thickness. Care was taken to avoid trauma to the surrounding skin and nail bed. All debris was removed as tolerated. The area was inspected for signs of infection or ulceration. Patient tolerated the procedure well without complications. Tolerance: Patient tolerated procedure well, no immediate complications. Class B findings as per physical exam findings above. The patient has a diagnosis of antalgic gait and severe arthritis in his back hip and knees. He is unable to provide routine care to himself, and risk for injury and infection. 21171-Iuylhbcnfwj of Nail 6+ Procedure code (CPT) selection complete Assessment & Plan Assessment & Plan (1) Onychomycosis: Code(s): B35.1 - Tinea unguium Category: Medical Plan: * Debrided elongated thickened nails x 10 using a sterile nail Nipper. (2) Antalgic gait: Code(s): R26.89 - Other abnormalities of gait and mobility Category: Medical Plan: * The patient has a diagnosis of antalgic gait and severe arthritis in his back hip and knees. He is unable to provide routine care to himself, and risk for injury and infection. * Recommended wide shoe-wear Orders: Orders AMB Debridement/Avulsion Podiatry Today B35.1 - Tinea unguium, L60.2 - Onychogryphosis Coding Level of Care Code New Pt Level 4 (81881) Diagnoses Onychomycosis B35.1 Antalgic gait R26.89 CPT Codes Skin Debridement - CPT: 08075-Xyrhdfdcqof of Nail 6+ ([id number]) Time Spent (min) 35
== END 2025-07-03 11:10 | disposition home or self-care (01) ==
LOC: HO.HPODS 10:27
PROVIDERS: PCP Internal Medicine; Visit Provider Student in an Organized Health Care Education/Training Program
DX: B35.1 Tinea unguium (principal); R26.89 Other abnormalities of gait and mobility; M16.12 Unilateral primary osteoarthritis, left hip; M17.11 Unilateral primary osteoarthritis, right knee
CPT/HCPCS: 11721; 99204

== ENCOUNTER → 2025-07-03 10:26 | Outpatient (BNVA) | payer MEDICARE, SELFPAY | PROVIDERS: PCP Internal Medicine; Visit Provider Student in an Organized Health Care Education/Training Program | DX: B35.1 Tinea unguium (principal); M79.674 Pain in right toe(s); R26.89 Other abnormalities of gait and mobility | CPT/HCPCS: 11721; 99202 ==